=== PATIENT | male | born 1970 | race Caucasian/White ===

== ENCOUNTER 2020-12-27 09:59 | Emergency (ER) | payer MEDICAID, SELFPAY ==
[~2020-12-27] VITALS: Ht 170.2 cm; Wt 138.0 kg
[2020-12-27] MEDS ORDERED: LABETALOL 100MG/20ML VIAL IV STA (10:40)
[2020-12-27] MEDS ORDERED: METOPROLOL TART 25 MG TABLET PO ONE (10:50)
[2020-12-27] MEDS ORDERED: FUROSEMIDE 40MG/4ML VIAL (J1940) IV ONE (10:55)
[2020-12-27 11:18] LABS: BASO # 0.1 10^3/uL (0.0-0.2); BASO % 0.7 % (0.0-1.0); EOS % 0.4 % (0.0-3.0); HEMOGLOBIN 15.3 g/dl (13.5-17.5); LYMPH % 14.9 % (24.0-44.0); MEAN CORPUSCULAR HEMOGLOBIN 29.9 pg (27.0-33.0); MEAN CORPUSCULAR HGB CONC 32.6 g/dl (32.0-36.5); MEAN CORPUSCULAR VOLUME 91.8 fl (80.0-96.0); MONO # 0.6 10^3/uL (0.0-0.8); MONO % 9.1 % (2.0-8.0); NEUTROPHILS % 74.6 % (36.0-66.0); PLATELET COUNT, AUTOMATED 188 10^3/uL (150-450); RED BLOOD COUNT 5.12 10^6/uL (4.30-6.10); WHITE BLOOD COUNT 6.7 10^3/uL (4.0-10.0)
[2020-12-27 11:38] LABS: ALBUMIN 3.4 GM/DL (3.2-5.2); ALT/SGPT 51 U/L (12-78); BILIRUBIN,DIRECT 0.3 MG/DL (0.0-0.2); BLOOD UREA NITROGEN 15 MG/DL (7-18); CALCIUM LEVEL 8.6 MG/DL (8.5-10.1); CARBON DIOXIDE LEVEL 27 MEQ/L (21-32); CHLORIDE LEVEL 111 MEQ/L (98-107); CK-MB VALUE MASS 3.2 NG/ML (<3.6); CPK CREATINE PHOSPHOKINASE 76 U/L (39-308); CREATININE FOR GFR 1.25 MG/DL (0.70-1.30); GLOMERULAR FILTRATION RATE > 60.0 (>56); GLUCOSE, FASTING 122 MG/DL (70-100); MB/CK RELATIVE INDEX 4.21 (< OR =4); POTASSIUM SERUM 4.5 MEQ/L (3.5-5.1); SODIUM LEVEL 142 MEQ/L (136-145); TOTAL PROTEIN 6.2 GM/DL (6.4-8.2); TROPONIN I 0.09 NG/ML (< 0.10)
--- NOTE | 2020-12-27 11:44 | REP ---
INDICATION: DYSPNEA/COUGH. COMPARISON: No comparison chest x-ray. TECHNIQUE: Portable upright AP chest radiograph. FINDINGS: The heart is enlarged. Pulmonary vasculature is cephalized. There is diffuse interstitial edema pattern in the lung sierra consistent with CHF. Slight blunting of the right lateral pleural angle is seen.. Monitoring electrodes are noted. There are degenerative changes in the right shoulder. IMPRESSION: CHF pattern with interstitial edema and slight blunting of the right lateral pleural angle.. <Electronically signed by Jose Guadalupe Jhaveri > 12/27/20 [id number]
[2020-12-27 11:46] LABS: RSV AMPLIFICATION NEGATIVE (NEGATIVE)
[2020-12-27 11:59] VITALS: BP 195/137
[2020-12-27] MEDS ORDERED: METOPROLOL TART 50 MG TAB PO ONE (12:30)
[2020-12-27] MEDS ORDERED: METOPROLOL 5 MG/5 ML VIAL IV SCH (12:30)
[2020-12-27] MEDS ORDERED: LOPR1TAB6 PO (12:42)
[2020-12-27] MEDS ORDERED: ELIQ5TAB PO (12:42)
[2020-12-27] MEDS ORDERED: LASI40TA9 PO (12:42)
[2020-12-27 13:15] VITALS: BP 161/135
--- NOTE | 2020-12-27 17:18 | ECGEPIP ---
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
[2020-12-28] MEDS ORDERED: METO50TA7 PO (23:37)
[2020-12-28] MEDS ORDERED: FURO40TA2 PO (23:37)
== END 2020-12-27 13:44 | disposition home or self-care (01) ==
LOC: M ED 09:59
DX: I16.0 Hypertensive urgency (principal); I50.9 Heart failure, unspecified; I48.0 Paroxysmal atrial fibrillation; R06.02 Shortness of breath; Z53.9 Procedure and treatment not carried out, unspecified reason; F17.200 Nicotine dependence, unspecified, uncomplicated; F10.10 Alcohol abuse, uncomplicated; Z79.01 Long term (current) use of anticoagulants; Z79.899 Other long term (current) drug therapy
CPT/HCPCS: 71045; 80048; 80076; 82550; 82553; 83605; 83880; 85025; 87631; 93005; 93041; 94760; 96374; 99285; J1940

== ENCOUNTER 2020-12-28 21:48 | Inpatient (IN) | payer MEDICAID, SELFPAY ==
[~2020-12-28] VITALS: Ht 172.7 cm; Wt 131.2 kg
[~2020-12-28 21:48] MED LIST: ELIQ5TAB PO; LASI40TA9 PO; LOPR1TAB6 PO
[2020-12-28] MEDS ORDERED: FUROSEMIDE 40MG/4ML VIAL (J1940) IV ONE (22:30)
[2020-12-28] MEDS ORDERED: NITROGLYCERIN 2% OINT 1 GM *U/D* PKT TOP ONE (22:30)
--- NOTE | 2020-12-28 23:13 | REPVR ---
PROCEDURE INFORMATION: Exam: XR Chest Exam date and time: 12/28/2020 10:39 PM Age: 50 years old Clinical indication: Cough and dyspnea; Additional info: Dyspnea/cough TECHNIQUE: Imaging protocol: XR of the chest. Views: 1 view. COMPARISON: CR PORTABLE CHEST X-RAY 12/27/2020 11:21 AM FINDINGS: Lungs: The lungs are unchanged. There are no interval infiltrates. Pleural spaces: Unremarkable. No pleural effusion. No pneumothorax. Heart/Mediastinum: Mild cardiomegaly despite the AP and lordotic projection but is unchanged from the prior study. Bones/joints: Unremarkable. IMPRESSION: Stable lordotic chest since 12/27/2020 with cardiomegaly. No acute interval process is identified. Electronically signed by: Jose Miguel Brito On 12/28/2020 23:12:49 PM
[2020-12-28 23:14] LABS: BASO # 0.1 10^3/uL (0.0-0.2); BASO % 0.8 % (0.0-1.0); EOS # 0.1 10^3/uL (0.0-0.5); EOS % 1.3 % (0.0-3.0); HEMATOCRIT 45.5 % (42.0-52.0); HEMOGLOBIN 15.2 g/dl (13.5-17.5); LYMPH # 1.7 10^3/uL (1.5-5.0); LYMPH % 18.3 % (24.0-44.0); MEAN CORPUSCULAR HEMOGLOBIN 30.3 pg (27.0-33.0); MEAN CORPUSCULAR HGB CONC 33.4 g/dl (32.0-36.5); MEAN CORPUSCULAR VOLUME 90.8 fl (80.0-96.0); MONO # 0.9 10^3/uL (0.0-0.8); MONO % 9.6 % (2.0-8.0); NEUTROPHILS # 6.4 10^3/uL (1.5-8.5); NEUTROPHILS % 69.6 % (36.0-66.0); PLATELET COUNT, AUTOMATED 200 10^3/uL (150-450); RED BLOOD COUNT 5.01 10^6/uL (4.30-6.10); WHITE BLOOD COUNT 9.3 10^3/uL (4.0-10.0)
[2020-12-28] MEDS ORDERED: METO50TA7 PO (23:37)
[2020-12-28] MEDS ORDERED: FURO40TA2 PO (23:37)
[2020-12-28] MEDS ORDERED: HOME MED LIST COMPLETE! XX SCH (23:40)
[2020-12-28 23:48] LABS: ALBUMIN 3.2 GM/DL (3.2-5.2); BILIRUBIN,DIRECT 0.3 MG/DL (0.0-0.2); BILIRUBIN,TOTAL 0.9 MG/DL (0.2-1.0); CALCIUM LEVEL 8.3 MG/DL (8.5-10.1); CK-MB VALUE MASS 2.7 NG/ML (<3.6); CREATININE FOR GFR 1.43 MG/DL (0.70-1.30); GLOMERULAR FILTRATION RATE 55.5 (>56); MB/CK RELATIVE INDEX 4.03 (< OR =4); POTASSIUM SERUM 4.1 MEQ/L (3.5-5.1); TOTAL PROTEIN 5.9 GM/DL (6.4-8.2); TROPONIN I 0.89 NG/ML (< 0.10)
[2020-12-29 00:10] LABS: RSV AMPLIFICATION NEGATIVE (NEGATIVE)
[2020-12-29] MEDS ORDERED: NITROGLYCERIN/D5W 100MCG/ML 25 MG in IV 1 EA IV SCH (00:50)
[2020-12-29 02:15] LABS: CK-MB VALUE MASS 2.3 NG/ML (<3.6); MB/CK RELATIVE INDEX 3.15 (< OR =4); TROPONIN I 0.86 NG/ML (< 0.10)
[2020-12-29] MEDS ORDERED: ACETAMINOPHEN TAB 650MG DOSE (2X325MG) PO PRN (04:35)
[2020-12-29] MEDS ORDERED: MOM 30ML SUSPENSION UDC PO PRN (04:35)
[2020-12-29] MEDS ORDERED: MAALOX 30 ML SUSP *UDC PO PRN (04:35)
--- NOTE | 2020-12-29 04:44 | HPEPDOC ---
[facility] Medical History & Physical Date of Admission Dec 29, 2020 Date of Service: Dec 29, 2020 Attending Physician: JUANJO ECHEVERRIA MD History and Physical CHIEF COMPLAINT: [50 y/o male c/o increasing sob x3 weeks] HISTORY OF PRESENT ILLNESS: [This is a 50 y/o male with no pmh who has not followed with a pcp in approx 30 years who presents to our ED on 12/28 with a cc of sob that has been increasing over the past 3 weeks. Patient reported to our ED on 12/27 for similar symptoms and at that point found to be in a-fib with rvr and subsequently started on metoprolol and eliquis in the ED, however declined admission d/t a family responsibility. Patient states that symptoms have not really improved but he did start his medications. Patient states that his sob is worse with movement however he does feel sob at times while simply sitting still. Patient admits to cough productive of white sputum. Patient states that he is worried to fall asleep at times because he feels it would cause him to almost stop breathing. Patient states that he feels he is holding on to a lot of fluid as he endorses abdominal distention and b/l lower extremity grossly pitting edema. Patient, at the time of my exam, denies fevers, headaches, chest pain, chest tightness, abd pain, n/v/d/c, calf pain, palpitations, syncope.] PAST MEDICAL HISTORY: 1. [See HPI PAST SURGICAL HISTORY: 1. [None]. SOCIAL HISTORY: Tobacco use:[Current smoker, recently cut down to 2-3 cigarettes/day] ETOH: [Socially] Illicit drug use: [Denies] FAMILY HISTORY: Father - CHF, COPD ALLERGIES: Please see below. REVIEW OF SYSTEMS: CONSTITUTIONAL: [See HPI]. HEENT: [Denies uri sx]. CARDIOVASCULAR: [See HPI]. RESPIRATORY: [See HPI]. GASTROINTESTINAL: [See HPI]. GENITOURINARY: [Denies dysuria]. SKIN: [Denies rash]. MUSCULOSKELETAL: [Denies acute joint/back pain]. NEUROLOGICAL: [Denies syncope, paresthesias]. ENDOCRINE: [Denies hx of DM]. HEMATOLOGIC/LYMPHATIC: [Denies easy bruising]. HOME MEDICATIONS: Please see below. PHYSICAL EXAMINATION: VITAL SIGNS: Please see below. GENERAL APPEARANCE: [This is a pleasant 50 y/o male who is alert and oriented to all questioning. He does not appear to be in any acute respiratory distress.]. HEENT: [No mass or lesion. EOMI. No scleral icterus. Nares patent. oral mucosa moist]. CARDIOVASCULAR: [Tachy rate, irregularly irregular rhythm. No murmurs, rubs, gallops]. LUNGS: [Scattered rhonchi and crackles throughout.]. ABDOMEN: [Distended, firm, nontender]. MUSCULOSKELETAL: [No joint deformity]. EXTREMITIES: [Pitting edema appreciated to b/l lower extremities above the knee. No overlying skin changes. Pulses intact]. NEUROLOGICAL: [Speech clear. A+Ox3. No focal deficits.]. PSYCHIATRIC: [Mood and affect appropriate.]. LABORATORY DATA: See below. IMAGING: [CXR: FINDINGS: Lungs: The lungs are unchanged. There are no interval infiltrates. Pleural spaces: Unremarkable. No pleural effusion. No pneumothorax. Heart/Mediastinum: Mild cardiomegaly despite the AP and lordotic projection but is unchanged from the prior study. Bones/joints: Unremarkable. IMPRESSION: Stable lordotic chest since 12/27/2020 with cardiomegaly. No acute interval process is identified. ] MICROBIOLOGY: Please see below. ASSESSMENT: [This is a 50 y/o male with no pmh who has not followed with a pcp in approx 30 years who presents to our ED on 12/28 with a cc of sob that has been increasing over the past 3 weeks. Patient reported to our ED on 12/27 for similar symptoms and at that point found to be in a-fib with rvr and subsequently started on metoprolol and eliquis in the ED, however declined admission d/t a family responsibility.]. . PLAN: 1. [Fluid overload - almost certainly secondary to CHF, patient paints chf picture clinically, has elevated bnp - echo ordered - Dr. Lassiter, cardiology, consulted by ED provider who recommended diuresis - 40mg lasix given in the ED - 60mg one time lasix ordered followed by 40mg q6h - Daily weights, is and os - lower extremity us to r/o dvt - Admit to pcu with tele for tx 2. HTN urgency - patients blood pressures elevated to 190s systolic at its highest in the ed - somewhat improved by nitro drip in the ED - will add lisinopril 20mg to patients bp regimen, will likely need uptitration - will monitor closely 3. A-fib - Patient not currently in rvr with rates consistantly in the the 90s-100s - continue metoprolol, eliquis - echo ordered to r/o valvular disease 4. ARCENIO? - patient's cr currently 1.4, however we have no baseline - If true arcenio, likely congestive in nature, pre-renal - renal us, ua, urine electrolytes 5. Troponinemia - Likely d/t CHF, tachycardia - patient complains of no chest pain, ekg not indicative of ischemia - Will trend 6 Class 3 obesity -complicates care DVT prophylaxis - patient on eliquis]. Vital Signs Vital Signs Date Time Temp Pulse Resp B/P (MAP) Pulse Ox O2 Delivery O2 Flow Rate FiO2 12/29/20 02:45 103 20 161/106 (124) 94 Room Air 12/28/20 21:48 98.2 Laboratory Data Labs 24H Laboratory Tests 2 12/28/20 23:00: Immature Granulocyte % (Auto) 0.4, Neutrophils (%) (Auto) 69.6H, Lymphocytes (%) (Auto) 18.3L, Monocytes (%) (Auto) 9.6H, Eosinophils (%) (Auto) 1.3, Basophils (%) (Auto) 0.8, Neutrophils # (Auto) 6.4, Lymphocytes # (Auto) 1.7, Monocytes # (Auto) 0.9H, Eosinophils # (Auto) 0.1, Basophils # (Auto) 0.1, Nucleated Red Blood Cells % (auto) 0.0, Anion Gap 7L, Glomerular Filtration Rate 55.5L, Calcium Level 8.3L, Total Bilirubin 0.9, Direct Bilirubin 0.3H, Aspartate Amino Transf (AST/SGOT) 40H, Alanine Aminotransferase (ALT/SGPT) 58, Alkaline Phospha tase 142H, Total Creatine Kinase 67, Creatine Kinase MB 2.7, Creatine Kinase MB Relative Index 4.03H, Troponin I 0.89#H, WR-Atg-D-Type Natriuretic Peptide 3908H, Total Protein 5.9L, Albumin 3.2, Albumin/Globulin Ratio 1.2, Coronavirus (COVID-19)(PCR) NEGATIVE, Influenza Type A (RT-PCR) NEGATIVE, Influenza Type B (RT-PCR) NEGATIVE, Respiratory Syncytial Virus (PCR) NEGATIVE 12/29/20 01:39: Total Creatine Kinase 73, Creatine Kinase MB 2.3, Creatine Kinase MB Relative Index 3.15, Troponin I 0.86H CBC/BMP Laboratory Tests 12/28/20 23:00 Home Medications Scheduled Apixaban (Eliquis) 5 Mg Tablet, 5 MG PO BID Carvedilol (Carvedilol) 12.5 Mg Tablet, 25 MG PO BID Cefdinir (Cefdinir) 300 Mg Capsule, 1 CAP PO BID Sacubitril/Valsartan (Entresto 24 mg-26 mg Tablet) 1 Each Tablet, 1 TAB PO BID Spironolactone (Aldactone) 25 Mg Tablet, 25 MG PO DAILY Torsemide (Torsemide) 20 Mg Tablet, 40 MG PO DAILY Scheduled PRN Hydrocodone/Acetaminophen (Hydrocodone-Acetamin 5-325 mg) 1 Each Tablet, 1 TAB PO Q6H PRN for PAIN Allergies Coded Allergies: No Known Allergies (Unverified , 12/27/20) A-FIB/CHADSVASC A-FIB History Current/History of A-Fib/PAF?: Yes Current PO Anticoag Therapy: Yes VIRI SMILEY Dec 29, 2020 04:44 JUANJO ECHEVERRIA MD Jan 04, 2021 06:35
[2020-12-29] MEDS ORDERED: FUROSEMIDE 100MG/10ML VIAL (J1940) IV ONE ×2 (05:00→10:20)
--- NOTE | 2020-12-29 06:06 | REPVR ---
PROCEDURE INFORMATION: Exam: US Duplex Lower Extremity Veins, Bilateral Exam date and time: 12/29/2020 5:49 AM Age: 50 years old Clinical indication: Edema, localized; Lower extremity, bilateral; Additional info: Ryan TECHNIQUE: Imaging protocol: Real-time duplex ultrasound of the extremities with 2-D sandoval scale, color Doppler flow and spectral waveform analysis with image documentation. Complete exam focused on the bilateral lower extremity veins. COMPARISON: No relevant prior studies available. FINDINGS: Right deep veins: Unremarkable. The common femoral, femoral, proximal profunda femoral and popliteal veins are patent without thrombus. Normal Doppler waveforms. Normal compressibility and/or augmentation response. Right superficial veins: Saphenofemoral junction is patent without thrombus. Left deep veins: Unremarkable. The common femoral, femoral, proximal profunda femoral and popliteal veins are patent without thrombus. Normal Doppler waveforms. Normal compressibility and/or augmentation response. Left superficial veins: Saphenofemoral junction is patent without thrombus. Soft tissues: Subcutaneous edema of the calves bilaterally. Left popliteal fossa cyst measuring 5.4 x 1.8 x 3.7 cm. IMPRESSION: 1. Negative bilateral lower extremity venous duplex exam without evidence of deep venous thrombosis. 2. Subcutaneous edema of the calves bilaterally. 3. Left popliteal fossa cyst measuring 5.4 x 1.8 x 3.7 cm. Electronically signed by: Jose Miguel Brito On 12/29/2020 06:05:31 AM
--- NOTE | 2020-12-29 06:08 | REPVR ---
PROCEDURE INFORMATION: Exam: US Retroperitoneal Limited, Kidneys Exam date and time: 12/29/2020 5:49 AM Age: 50 years old Clinical indication: Abnormal findings; Abnormal lab test; Abnormal kidney function lab tests; Additional info: Ryan TECHNIQUE: Imaging protocol: Real-time ultrasound of the retroperitoneum with image documentation. Examination was focused on the kidneys. COMPARISON: No relevant prior studies available. FINDINGS: Right kidney: The right kidney measures 12.2 cm in its cephalocaudad dimension and 6.3 x 5.4 cm in diameter. No mass, cyst or hydronephrosis. Left kidney: The left kidney measures 11.6 cm in its cephalocaudad dimension and 6.1 x 6.1 cm in diameter. No mass, cyst or hydronephrosis. Bladder: The urinary bladder appears grossly normal. IMPRESSION: Negative renal sonogram. Electronically signed by: Jose Miguel Brito On 12/29/2020 06:07:23 AM
[2020-12-29 07:28] LABS: INR 1.17; PROTHROMBIN TIME 15.3 SECONDS (12.7-14.5)
[2020-12-29] MEDS ORDERED: atenoloL 50 MG TAB PO ONE (08:35)
--- NOTE | 2020-12-29 08:58 | REP ---
INDICATION: SOB COMPARISON: None. TECHNIQUE: PA and lateral. FINDINGS: Cardiomegaly is appreciated with prominent and indistinct pulmonary vasculature emanating from the bilateral robert. No discrete focal consolidation. Small right pleural effusion cannot be excluded. No pneumothorax. Skeletal structures intact. IMPRESSION: Early pulmonary edema/CHF. <Electronically signed by Cristo Soriano > 12/29/20 [id number]
[2020-12-29] MEDS ORDERED: METOPROLOL TART 50 MG TAB PO SCH (09:00)
[2020-12-29] MEDS: APIXABAN 5 MG TAB (ELIQUIS) PO SCH ×2 (09:48→21:04)
[2020-12-29 09:56] LABS: CALCIUM LEVEL 8.9 MG/DL (8.5-10.1); CK-MB VALUE MASS 2.9 NG/ML (<3.6); CREATININE FOR GFR 1.49 MG/DL (0.70-1.30); GLOMERULAR FILTRATION RATE 52.9 (>56); MAGNESIUM LEVEL 1.8 MG/DL (1.8-2.4); MB/CK RELATIVE INDEX 3.82 (< OR =4); POTASSIUM SERUM 3.7 MEQ/L (3.5-5.1); TROPONIN I 0.68 NG/ML (< 0.10)
--- NOTE | 2020-12-29 10:07 | ECGEPIP ---
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
[2020-12-29] MEDS ORDERED: SLF 3 ML SYR IV PRN (10:30)
[2020-12-29 11:27] LABS: CK-MB VALUE MASS 2.5 NG/ML (<3.6); MB/CK RELATIVE INDEX 3.33 (< OR =4); TROPONIN I 0.64 NG/ML (< 0.10)
[2020-12-29] MEDS ORDERED: FUROSEMIDE 40MG/4ML VIAL (J1940) IV SCH (12:00)
[2020-12-29 12:15] VITALS: BP 170/99
[2020-12-29 12:20] VITALS: O2SAT 95
[2020-12-29] MEDS ORDERED: CALCIUM GLUCONATE 1,000 MG in D5W MINI-BAG PLUS 100 ML IV ONE (13:00)
[2020-12-29] MEDS ORDERED: POTASSIUM CHLORIDE 10 MEQ SR TABLET PO ONE (13:00)
[2020-12-29] MEDS ORDERED: MAG SULF 1GM/100ML (MAG RUN) 1 GM in IV 1 EA IV ONE (13:00)
[2020-12-29 14:19] LABS: APPEARANCE, URINE CLEAR (CLEAR); BACTERIA, URINE AUTO NEGATIVE (NEGATIVE); BILIRUBIN, URINE AUTO NEGATIVE (NEGATIVE); BLOOD, URINE BLOOD NEGATIVE (NEGATIVE); COLOR, URINE YELLOW (YELLOW); GLUCOSE, URINE (UA) AUTO NEGATIVE (NEGATIVE); KETONE, URINE AUTO NEGATIVE (NEGATIVE); LEUKOCYTE ESTERASE, URINE AUTO NEGATIVE (NEGATIVE); MUCUS, URINE SMALL (NEGATIVE); NITRITE, URINE AUTO NEGATIVE (NEGATIVE); PROTEIN, URINE AUTO NEGATIVE (NEGATIVE); RBC, URINE AUTO 0 /HPF (0-3); SPECIFIC GRAVITY URINE AUTO 1.008 (1.002-1.035); SQUAMOUS EPITHELIAL CELL UR AU 0 /HPF (0-6); UROBILINOGEN, URINE AUTO 0.2 mg/dL (0.0-2.0); WBC, URINE AUTO 1 /HPF (0-3)
[2020-12-29 14:30] VITALS: BP 145/90
[2020-12-29 14:45] LABS: CREATININE,RANDOM URINE 61.4 MG/DL
[2020-12-29 15:01] LABS: TOTAL PROTEIN,RANDOM URINE 11.9 MG/DL (0.0-12.0)
[2020-12-29] MEDS: SLF 3 ML SYR IV SCH ×2 (15:56→21:05)
[2020-12-29 16:00] VITALS: BP 146/96
[2020-12-29 16:16] LABS: CALCIUM LEVEL 8.7 MG/DL (8.5-10.1); CK-MB VALUE MASS 1.9 NG/ML (<3.6); CREATININE FOR GFR 1.8 MG/DL (0.70-1.30); GLOMERULAR FILTRATION RATE 42.6 (>56); MAGNESIUM LEVEL 2.3 MG/DL (1.8-2.4); MB/CK RELATIVE INDEX 2.68 (< OR =4); TROPONIN I 0.58 NG/ML (< 0.10)
[2020-12-29] MEDS: ISOSORBIDE DIN. (ISORDIL) 20 MG TAB PO PRN (18:32)
[2020-12-29 20:00] VITALS: BP 156/85; O2SAT 95
--- NOTE | 2020-12-29 20:27 | ECGEPIP ---
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
[2020-12-29] MEDS: atenoloL 50 MG TAB PO SCH (21:05)
[2020-12-30] VITALS (15 sets, daily range): BP systolic 146–158; BP diastolic 80–96; O2SAT 84–96
[2020-12-30] MEDS: SLF 3 ML SYR IV SCH ×3 (05:08→20:42)
[2020-12-30 05:20] LABS: HEMATOCRIT 45.3 % (42.0-52.0); HEMOGLOBIN 14.5 g/dl (13.5-17.5); MEAN CORPUSCULAR HEMOGLOBIN 29.5 pg (27.0-33.0); MEAN CORPUSCULAR VOLUME 92.3 fl (80.0-96.0); PLATELET COUNT, AUTOMATED 172 10^3/uL (150-450); RED BLOOD COUNT 4.91 10^6/uL (4.30-6.10); WHITE BLOOD COUNT 7.4 10^3/uL (4.0-10.0)
[2020-12-30 05:48] LABS: CALCIUM LEVEL 8.3 MG/DL (8.5-10.1); CHOLESTEROL RISK RATIO 2.729 (<5); CREATININE FOR GFR 1.61 MG/DL (0.70-1.30); GLOMERULAR FILTRATION RATE 48.4 (>56); MAGNESIUM LEVEL 2.2 MG/DL (1.8-2.4); POTASSIUM SERUM 3.7 MEQ/L (3.5-5.1)
--- NOTE | 2020-12-30 08:25 | IPNPDOC ---
Date Seen The patient was seen on 12/30/20. Progress Note SUBJECTIVE: denies chest pain,palpitations, but slightly dizzy when he first got up this am. slight sob,but significantly better than yesterday morning. tele:afib i/o: neg balance OBJECTIVE PHYSICAL EXAMINATION: VITAL SIGNS: Please see below. GENERAL: no distress HEENT: mild jvd. moist mucus membranes no cervical LAD or thyromegaly CARDIOVASCULAR:S1S2 S3 irregularly irregular RESPIRATORY: diminished AE. bibasilar crackles. ABDOMINAL: obese soft nt nd +bs x 4quadrants no fluid wave EXTREMITIES: + trace bl edema LABORATORY DATA, IMAGING STUDIES, MICROBIOLOGY: Please see below. Echocardiogram: pending, ordered DVT prophylaxis ordered?: on eliquis ASSESSMENT AND PLAN: 50M w pmh obesity, prior h/o smoking admitted for new onset Afib w rvr, complicated by HTN emergency, CHF, unk EF, ARCENIO, and type2 demand-mediated NSTEMI. PROBLEMS: New onset Afib w RVR -on eliquis -on atenolol -rate controlled HTN emergency w CHF and type 2 NSTEMI s/p nicardipine iv gtt -resolved -s/p lasix -avoid ACEInh and ARB due to ARCENIO -on hydralazine and nitrates -atenolol for afib acute CHF, unknown EF -in the setting of htn emergency and afib w rvr -s/p lasix -complicated by ARCENIO -off diuretics x 24hrs, w improved creatinine -fluid restriction 2liters, strict i/l, weigh daily ARCENIO -in the setting of decompensated chf and recent diuresis -still appears clinically fluid overloaded -statement processor consulted to help manage fluid status type 2 demand-mediated NSTEMI -due to afib w rvr -will need a stress test or coronary angiogram -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 VS, I&O, 24H, Fishbone Vital Signs/I&O Vital Signs Date Time Temp Pulse Resp B/P (MAP) Pulse Ox O2 Delivery O2 Flow Rate FiO2 12/30/20 04:00 96.8 66 24 148/95 (112) 92 Room Air I&O- Last 24 Hours up to 6 AM 12/30/20 06:00 Intake Total 665 ml Output Total 2375 ml Balance -1710 ml Laboratory Data 24H LABS Laboratory Tests 2 12/29/20 09:04: Anion Gap 6L, Glomerular Filtration Rate 52.9L, Calcium Level 8.9, Whole Blood Ionized Calcium 4.4L, Magnesium Level 1.8, Total Creatine Kinase 76, Creatine Kinase MB 2.9, Creatine Kinase MB Relative Index 3.82, Troponin I 0.68#H, MW-Brz-E-Type Natriuretic Peptide 3742H 12/29/20 10:46: Total Creatine Kinase 75, Creatine Kinase MB 2.5, Creatine Kinase MB Relative Index 3.33, Troponin I 0.64H 12/29/20 13:53: Urine Color YELLOW, Urine Appearance CLEAR, Urine pH 6.0, Urine Specific [place] 1.008, Urine Protein NEGATIVE, Urine Glucose (Auto)(UA) NEGATIVE, Urine Ketones (Auto) NEGATIVE, Urine Blood NEGATIVE, Urine Nitrite NEGATIVE, Urine Bilirubin NEGATIVE, Urine Urobilinogen 0.2, Urine Leukocyte Esterase (Auto) NEGATIVE, Urine WBC (Auto) 1, Urine RBC (Auto) 0, Urine Hyaline Casts (Auto) 1, Urine Bacteria (Auto) NEGATIVE, Urine Squamous Epithelial Cells 0, Urine Mucus (Auto) SMALL, Urine Sperm (Auto) , Urine Random Creatinine 61.4, Urine Random Total Protein 11.9, Urine Random Sodium 89 12/29/20 15:38: Anion Gap 4L, Glomerular Filtration Rate 42.6L, Calcium Level 8.7, Whole Blood Ionized Calcium 4.5, Magnesium Level 2.3, Total Creatine Kinase 71, Creatine Kinase MB 1.9, Creatine Kinase MB Relative Index 2.68, Troponin I 0.58H 12/30/20 04:54: Nucleated Red Blood Cells % (auto) 0.0, Anion Gap 4L, Glomerular Filtration Rate 48.4L, Calcium Level 8.3L, Magnesium Level 2.2, JE-Kkg-V-Type Natriuretic Peptide 2662H, Triglycerides Level 68, Total Cholesterol 101, LDL Cholesterol 50, Non-HDL Cholesterol (LDL + VLDL) 64, Total HDL Cholesterol 37L, Cholesterol/HDL Ratio 2.729 CBC/BMP Laboratory Tests 12/29/20 09:04 12/29/20 15:38 12/30/20 04:54 DEENA LO MD Dec 30, 2020 08:25
--- NOTE | 2020-12-30 08:27 | REP ---
INDICATION: sob COMPARISON: 12/29/2020 TECHNIQUE: Portable AP view of the chest FINDINGS: The mediastinum and cardiac silhouette are stable and mild cardiomegaly cannot be excluded. The lung sierra are relatively clear and without focal consolidation, effusion, or pneumothorax. Increased pulmonary vasculature emanating from the robert on prior examination appears improved and should be correlated clinically. Skeletal structures are intact. IMPRESSION: No acute cardiopulmonary process appreciated. As above. <Electronically signed by Cristo Soriano > 12/30/20 [id number]
[2020-12-30 08:54] LABS: THYROID STIMULATING HORMONE 2.45 uIU/ML (0.358-3.740)
[2020-12-30] MEDS ORDERED: atenoloL 50 MG TAB PO SCH (09:00)
[2020-12-30 09:11] LABS: HEMOGLOBIN A1c 5.3 %
[2020-12-30] MEDS: APIXABAN 5 MG TAB (ELIQUIS) PO SCH ×2 (09:11→20:42)
[2020-12-30] MEDS: FUROSEMIDE 100MG/10ML VIAL (J1940) IV SCH ×2 (13:02→16:31)
[2020-12-30] MEDS: atenoloL 50 MG TAB PO SCH (20:42)
--- NOTE | 2020-12-30 21:23 | CR ---
NEPHROLOGY CONSULTATION DATE: 12/30/2020 REQUESTING PHYSICIAN: Dr. Cher Ozuna CONSULTING PHYSICIAN: Dr. Ashanti Garg REASON FOR CONSULTATION: Management of diuretic in this patient with renal dysfunction. HISTORY OF PRESENT ILLNESS: Armando Arvizu is a 50-year-old male who presented to the hospital with a complaint of progressive and worsening shortness of breath. He reports he has not seen a physician his whole adult life and cannot recall having blood work done for several decades. He states that over the past year or two he has noticed development of swelling in his legs which has slowly and insidiously worsened, but the patient did not pay much attention to it until the last 3 weeks when he found it increasingly difficult to breathe. Even at rest the patient was short of breath. It got to the point where he felt that he could not sleep at all at night because of severe dyspnea and orthopnea. He started trying to sleep while he was sitting upright and even then he felt short of breath and subsequently he came to the Emergency Room for further evaluation. In the Emergency Department on December 27 the patient was found to be in atrial fibrillation with rapid ventricular response and he was started on Metoprolol and Eliquis and was advised to get admitted. However he declined admission due to some work that he had to get done. He subsequently presented back to the Emergency Room on the evening of December 28, ready for further evaluation and treatment of his fluid overload. He tells me that he takes no [id number]-qzvticj medication on a regular basis with the exception of Ibuprofen. He has been taking a couple tablets every day for about a year now. He denies any issues emptying out his bladder. He denies any issues with his urine stream. He has thus far gotten a total of 100 mg of IV Lasix since he was admitted and has made several liters of urine and reports already feeling more comfortable and less short of breath. Laboratory studies revealed a creatinine of 1.4 on admission on December 28 which is up to 1.8 yesterday and nephrology evaluation was subsequently requested for help in the management of diuresis in this patient with suspected chronic underlying renal dysfunction. PAST MEDICAL HISTORY: The patient's past medical history is significant for: 1. Obesity. 2. Atrial fibrillation. 3. Most likely chronic kidney disease stage 3. 4. Hypertension. 5. Suspected congestive heart (I do note all of these diagnoses have been made over the past 3 days as the patient has not had prior medical care his whole adult life). PAST SURGICAL HISTORY: The patient's past surgical history is significant for: 1. He reports surgery on his third knuckle of the left hand at age 18. ALLERGIES: NO KNOWN DRUG ALLEGIES. SOCIAL HISTORY: He is a current smoker. He reports social alcohol. He denies drug use. HOME MEDICATIONS: Ibuprofen p.r.n. FAMILY HISTORY: The patient's family history is significant for congestive heart failure in his father. REVIEW OF SYSTEMS: Constitutional: He denies fevers or chills. Eyes: He denies visual changes or tearing. ENT: He denies rhinorrhea or odynophagia. Cardiovascular: He reports leg swelling. He reports dyspnea at rest. Reports atrial fibrillation. He denies chest pain. Respiratory: He reports orthopnea, dyspnea and paroxysmal nocturnal dyspnea. Gastrointestinal: He denies nausea, vomiting, diarrhea. Genitourinary: He denies dysuria, hematuria or troubles voiding. Endocrine: He reports obesity. He denies diabetes or thyroid issues. Musculoskeletal: He reports arthritic pain and leg swelling. Hematologic: Denies anemia. He reports he was recently started on anticoagulant 2 days ago. Psychiatric: He denies depression or anxiety. Neurologic: He denies seizures or syncope. The remainder of review of systems is negative or as per HPI. VITAL SIGNS: Temperature 98.0, pulse 86, respiratory rate 21, blood pressure 152/94, saturating 98% on room air. INTAKE AND OUTPUT: Intake yesterday was 665 mL. Urine output was recorded as 2.3 liters. Weight in the bed scale today is 138.4 kg. PHYSICAL EXAMINATION: GENERAL APPEARANCE: The patient is seen sitting on a sofa by the bed, eating lunch. Middle age male, obese, awake, alert, oriented, good historian, in no distress. HEENT: The extraocular muscles are intact. Tongue is moist. NECK: Supple. Jugular veins were mildly elevated. HEART: Irregularly irregular. There is 2+ pitting edema distal to the knee. LUNGS: Good breath sounds. I do not hear any crackles or rales. He is comfortable on room air. There is no tachypnea or accessory muscle use. ABDOMEN: Soft, obese and nontender. EXTREMITIES: Negative for clubbing or cyanosis but there is 2+ edema in the lower extremities. Peripheral pulses are 2+. NEUROLOGICAL: He is oriented x3, interactive, at baseline mentation. PSYCHIATRIC: Appropriate mood and affect. LABORATORY STUDIES: Sodium 142, potassium 3.7, bicarbonate 33, BUN 25, creatinine 1.6, up from 1.4 on admission. A1c 5.3, BNP 2,600, TSH is normal. Albumin is 3.2. Hemoglobin 14.5, platelet count 172. Urinalysis is negative for blood and negative for protein. IMAGING DATA: Renal ultrasound done yesterday shows 12.2 cm right kidney and 11.6 cm left kidney. No hydronephrosis, no mass, no cysts. CURRENT INPATIENT MEDICATIONS: The patient has thus far gotten cumulative 100 mg of IV Lasix since admission. He is presently on Tylenol p.r.n., Mylanta p.r.n., Eliquis 5 mg p.o. twice daily, Atenolol 50 mg p.o. q. h.s. and Atenolol 100 mg p.o. daily. I ordered Lasix 60 mg IV twice daily. He is also on Isordil 20 mg p.o. q. 6 hourly p.r.n. systolic blood pressure above 150. PROBLEMS: 1. Rbmgv-vc-[id number] decompensated congestive heart failure, type is unknown yet - the patient is pending echocardiogram. BNP was elevated at 3,900 on admission, down to 2,600 at this time. He has gotten a total of 100 mg of IV Lasix thus far and has started to diurese but still has considerable hypervolemia on exam. I would continue him on Lasix at this time. Furosemide 60 mg IV twice daily is ordered. 2. Probable chronic kidney disease stage 3 - The patient had a renal ultrasound and urinalysis done. Both were unremarkable. Renal ultrasound showed normal size kidneys without any cyst, mass or signs of obstruction. His urinalysis likewise is benign and negative for blood or protein. His creatinine has been ranging from 1.2 to 1.8 over the past 3 days. We will diurese the patient and see where his renal function ends up after his volume status is optimized. He reports taking Ibuprofen daily, a couple of tablets for the past year and I have advised him against regular use of NSAIDs. I would keep him off GALE or ARB at this time (unless echocardiogram shows reduced left ventricular ejection fraction). 3. Hypertension systolic has been mostly 140's to 150's. He is on Atenolol and Isordil and I expect that his blood pressure is going to improve as he is diuresed with IV Lasix. I would keep him off of GALE or ARB at this time. 4. Atrial fibrillation with rapid ventricular response - The patient is rate controlled with beta mary and anticoagulated with Eliquis. I suggest that he may benefit from a low dose proton pump inhibitor, given that he has been using NSAIDs every day for the past year and is now being started on full anticoagulation. Thank you for involving me in the care of Mr. Arvizu. I will be happy to follow him along with you.
[2020-12-31] VITALS: BP 156/107
[2020-12-31] MEDS: ISOSORBIDE DIN. (ISORDIL) 20 MG TAB PO PRN (00:21)
[2020-12-31 04:00] VITALS: BP 156/90
[2020-12-31 04:59] LABS: HEMATOCRIT 45.1 % (42.0-52.0); HEMOGLOBIN 14.8 g/dl (13.5-17.5); MEAN CORPUSCULAR HGB CONC 32.8 g/dl (32.0-36.5); MEAN CORPUSCULAR VOLUME 91.5 fl (80.0-96.0); PLATELET COUNT, AUTOMATED 185 10^3/uL (150-450); RED BLOOD COUNT 4.93 10^6/uL (4.30-6.10); WHITE BLOOD COUNT 7.2 10^3/uL (4.0-10.0)
[2020-12-31 05:20] LABS: CALCIUM LEVEL 8.3 MG/DL (8.5-10.1); CREATININE FOR GFR 1.51 MG/DL (0.70-1.30); GLOMERULAR FILTRATION RATE 52.1 (>56); MAGNESIUM LEVEL 2.1 MG/DL (1.8-2.4); POTASSIUM SERUM 3.7 MEQ/L (3.5-5.1)
[2020-12-31] MEDS: SLF 3 ML SYR IV SCH ×3 (06:10→21:57)
[2020-12-31 08:01] VITALS: BP 155/96
[2020-12-31] MEDS: APIXABAN 5 MG TAB (ELIQUIS) PO SCH ×2 (09:53→21:57)
[2020-12-31] MEDS: atenoloL 50 MG TAB PO SCH (09:53)
[2020-12-31] MEDS: FUROSEMIDE 100MG/10ML VIAL (J1940) IV SCH ×2 (09:54→16:26)
[2020-12-31] MEDS: OMEPRAZOLE 20 MG CAP PO SCH (09:54)
[2020-12-31] MEDS ORDERED: ELIQ5TAB PO (10:27)
[2020-12-31] MEDS ORDERED: ISOSORBIDE MON. (IMDUR) 60 MG XR TAB PO ONE (12:20)
--- NOTE | 2020-12-31 12:25 | IPNPDOC ---
Date Seen The patient was seen on 12/31/20. Progress Note SUBJECTIVE: Patient diuresed well overnight and is said that he actually urinated more than what is documented. He was not aware that nursing was keeping an eye on his urine output. He denies any shortness of breath and says that he feels much better today than yesterday especially with ambulation. He denies any chest pressure tightness lightheadedness or dizziness when he got up this morning he denies any nausea vomiting epigastric pain changes in vision or diaphoresis patient is anxious to go home and is requesting to see Dr. Lassiter as outpatient as a new referral in case he needed a stress test or coronary angiogram to further evaluate his congestive heart failure OBJECTIVE PHYSICAL EXAMINATION: VITAL SIGNS: Please see below. GENERAL: no distress HEENT: No JVD moist mucous membranes no thyromegaly or cervical lymphadenopathy CARDIOVASCULAR:S1S2 no murmurs noted irregularly irregular not tachycardic RESPIRATORY: diminished AE. bibasilar crackles. ABDOMINAL: obese soft nt nd +bs x 4quadrants no fluid wave EXTREMITIES: + trace bl edema LABORATORY DATA, IMAGING STUDIES, MICROBIOLOGY: Please see below. Echocardiogram: pending, ordered DVT prophylaxis ordered?: on eliquis ASSESSMENT AND PLAN: 50M w pmh obesity, prior h/o smoking admitted for new onset Afib w rvr, complicated by HTN emergency, CHF, unk EF, ARCENIO, and type2 demand-mediated NSTEMI. PROBLEMS: New onset Afib w RVR -on eliquis -on atenolol which has been changed to daily hold for systolic pressure less than 100 or heart rate less than 60, heart block, sinus pause -rate controlled HTN emergency w CHF and type 2 NSTEMI s/p nicardipine iv gtt -resolved -On Lasix IV twice daily managed by nephrology -avoid ACEInh and ARB due to ARCENIO -on hydralazine as needed -Changed to long-acting isosorbide mononitrate once daily 60 mg for long-acting control -atenolol for afib acute CHF, unknown EF -in the setting of htn emergency and afib w rvr -Lasix managed by nephrology -complicated by ARCENIO -fluid restriction 2liters, strict i/l, weigh daily ARCENIO -in the setting of decompensated chf and recent diuresis -still appears clinically fluid overloaded -etcher enameling consulted to help manage fluid status on IV Lasix twice daily type 2 demand-mediated NSTEMI -due to afib w rvr -will need a stress test or coronary angiogram as outpatient -pt wants talent consultant that his father goes to.Antecol obesity BMI 46.4 Complicating care suspected SUSHILA -will need a sleep study -await echo to check for pulm htn and right sided chf/cor pulmonale prior tobacco abuse Disposition: Defer to nephrology when patient is euvolemic and can be changed to oral diuretics. 1 to 2 days VS, I&O, 24H, Fishbone Vital Signs/I&O Vital Signs Date Time Temp Pulse Resp B/P (MAP) Pulse Ox O2 Delivery O2 Flow Rate FiO2 12/31/20 09:53 83 155/96 12/31/20 08:01 97.2 23 83 Room Air I&O- Last 24 Hours up to 6 AM 12/31/20 06:00 Intake Total 2160 ml Output Total 650 ml Balance 1510 ml Laboratory Data 24H LABS Laboratory Tests 2 12/31/20 04:38: Nucleated Red Blood Cells % (auto) 0.0, Anion Gap 3L, Glomerular Filtration Rate 52.1L, Calcium Level 8.3L, Magnesium Level 2.1 CBC/BMP Laboratory Tests 12/31/20 04:38 DEENA LO MD Dec 31, 2020 12:25
[2020-12-31 12:31] VITALS: BP 137/92
[2020-12-31 16:20] VITALS: BP 140/90
--- NOTE | 2020-12-31 17:16 | ECHO ---
ECHOCARDIOGRAM DATE OF PROCEDURE: 12/29/2020 Age: Gender: Height: 173 cm Weight: 110 kg REFERRING PHYSICIAN: Reggie Roman physician assistant fitness manager INDICATION: Heart failure, unspecified. 2D MEASUREMENTS: Ventricular septum 1.77 cm Posterior wall 1.62 cm Left ventricle diastole 6.4 cm Left atrium 5.1 cm Aortic root 3.4 cm LVOT 2.4 cm Left atrial volume index 15 Inferior vena cava 2.7 cm DOPPLER MEASUREMENTS: LVOT velocity 51.6 cm/s Mild mitral regurgitation. Mild tricuspid regurgitation. Estimated right ventricle systolic pressure at least 51 mmHg Estimated right atrial pressure of 20 mmHg No pulmonic regurgitation. DESCRIPTION: Rhythm appeared to be atrial fibrillation. This was a moderately technically difficult echocardiogram. This was a 2D, M-mode, color flow Doppler examination. CONCLUSIONS: 1. Mild left ventricle dilatation at end-diastole. Moderate to severe mixed eccentric/concentric left ventricle hypertrophy. Moderate to severe global LV hypokinesis. Severe reduction in overall LV systolic function. LVEF 25% by visual estimate. 2. Mild mitral annular calcification. Mild mitral regurgitation. 3. Severe left atrial dilatation by left atrial volume index. 4. At least mild right ventricle hypertrophy. At least mild reduction in overall RV systolic function. At least moderate right atrial dilatation by visual assessment. Structurally normal tricuspid leaflets with mild tricuspid regurgitation, suggestive of at least moderate elevation of estimated right ventricle systolic pressure (at least 51 mmHg). Inferior vena cava plethora suggestive of elevated CVP of at least 20 mmHg. 5. Tiny pericardial effusion. No diastolic chamber collapse.
--- NOTE | 2020-12-31 19:07 | IPN ---
NEPHROLOGY PROGRESS NOTE DATE: 12/31/2020 SUBJECTIVE: Patient seen and examined this morning at the bedside. He denies any complaints. Reports he has been urinating profusely and his shortness of breath continues to improve. Laboratory studies show improving renal function. OBJECTIVE: VITAL SIGNS: Temperature 97.2, pulse 78, respiratory rate 20, blood pressure 140/90, saturating 96% on room air. INTAKE AND OUTPUT: Intake yesterday was recorded as 2.1 liters. He had 4 incontinent voids. Weight in the bed scale today is 130.1 kg, which is significantly lower than on admission. GENERAL: Patient is seen sitting in the chair and walking around the room, middle-age male, obese, awake, alert, oriented, in no distress. HEENT: Extraocular muscles intact. Tongue is moist. Neck is supple. Jugular veins are not elevated while he is sitting upright. HEART SOUNDS: Irregular. S1. S2. There is ongoing 1+ edema of the lower extremities. It is improved as compared to yesterday. LUNGS: Clear to auscultation. No crackle or rale. He is comfortable on room air. ABDOMEN: Obese and nontender. NEUROLOGIC: Oriented times three, interactive, conversational, at baseline mentation. LABORATORY STUDIES: White count 7.2, hemoglobin 14.8, platelets 185. Sodium 144, potassium 3.7, bicarbonate 35, BUN 27, creatinine 1.5. Echocardiogram shows severe reduction in systolic function, left ventricular ejection fraction 25% and at least mild reduction in overall systolic function. Teeny pericardial effusion. INPATIENT MEDICATIONS: Reviewed by myself. He continues on Lasix 60 mg intravenous (IV) twice a day. His Isordil was stopped. He is now on Imdur 60 mg by mouth daily and he is now on atenolol 100 mg by mouth daily. PROBLEMS: 1. Decompensated systolic congestive heart failure. Echocardiogram is noted. Patient is going to need ischemic workup of his cardiomyopathy. For now, we are working on his volume status. He is diuresing well. I will continue him on Lasix 60 mg IV twice a day. I suspect he can be switched over to oral diuretic in another 24 hours. Given his depressed ejection fraction, if his creatinine remains stable in the mid-ones, he can probably be started on a low dose angiotensin converting enzyme (GALE), angiotensin receptor mary (ARB) or Entresto, if cardiology would like to do that. 2. Chronic kidney disease (CKD) stage III. Patient likely has underlying CKD stage III that is diagnosed on this admission. We will see where his renal function ends up once his volume status is optimized. There is no proteinuria on his urinalysis. However, patient does have an indication for GALE or ARB therapy (depressed ejection fraction). 3. Hypertension. His antihypertensives were adjusted today. He is on atenolol and Imdur. His blood pressure will also improve with diuresis. 4. Atrial fibrillation. He is rate controlled with beta mary and anticoagulated with Eliquis.
[2020-12-31 20:00] VITALS: BP 136/86
[2021-01-01] VITALS (16 sets, daily range): BP systolic 134–167; BP diastolic 81–108; O2SAT 93–98
[2021-01-01] MEDS: hydrALAZINE 20MG/ML 1ML VIAL (J0360 PER 20MG) IV PRN ×2 (00:37→23:56)
[2021-01-01] MEDS: SLF 3 ML SYR IV SCH ×3 (05:42→20:58)
[2021-01-01 05:46] LABS: HEMOGLOBIN 15.2 g/dl (13.5-17.5); MEAN CORPUSCULAR HEMOGLOBIN 30.3 pg (27.0-33.0); MEAN CORPUSCULAR VOLUME 91.6 fl (80.0-96.0); PLATELET COUNT, AUTOMATED 201 10^3/uL (150-450); RED BLOOD COUNT 5.02 10^6/uL (4.30-6.10); WHITE BLOOD COUNT 7.1 10^3/uL (4.0-10.0)
[2021-01-01 06:18] LABS: BLOOD UREA NITROGEN 28 MG/DL (7-18); CALCIUM LEVEL 8.3 MG/DL (8.5-10.1); CARBON DIOXIDE LEVEL 34 MEQ/L (21-32); CHLORIDE LEVEL 108 MEQ/L (98-107); CREATININE FOR GFR 1.33 MG/DL (0.70-1.30); GLOMERULAR FILTRATION RATE > 60.0 (>56); GLUCOSE, FASTING 108 MG/DL (70-100); MAGNESIUM LEVEL 2.2 MG/DL (1.8-2.4); POTASSIUM SERUM 3.5 MEQ/L (3.5-5.1); SODIUM LEVEL 144 MEQ/L (136-145)
[2021-01-01] MEDS ORDERED: ISOSORBIDE MON. (IMDUR) 60 MG XR TAB PO SCH (09:00)
[2021-01-01] MEDS ORDERED: POTASSIUM CHLORIDE 10 MEQ SR TABLET PO SCH (09:00)
[2021-01-01] MEDS: OMEPRAZOLE 20 MG CAP PO SCH (09:39)
[2021-01-01] MEDS: APIXABAN 5 MG TAB (ELIQUIS) PO SCH ×2 (09:43→20:57)
[2021-01-01] MEDS: atenoloL 50 MG TAB PO SCH (09:44)
[2021-01-01] MEDS: FUROSEMIDE 100MG/10ML VIAL (J1940) IV SCH (09:45)
--- NOTE | 2021-01-01 10:29 | IPN ---
PROGRESS NOTE DATE: 01/01/2021 SUBJECTIVE: Patient denies any chest pain, pressure, tightness. Shortness of breath has improved. He denies any dyspnea on exertion, paroxysmal nocturnal dyspnea (PND) or orthopnea. Denies any near syncope, lightheadedness. Patient has been net negative balance; negative 2315 yesterday. Current weight is 131.2 kilos from admission weight of 138.4 kg. PHYSICAL EXAMINATION: VITAL SIGNS: Temperature 98, pulse 106, respiratory rate 18, blood pressure 148/92, 94% on room air. GENERAL: Patient is awake, alert, oriented to person, place and time, answering questions appropriately. No respiratory distress or use of respiratory accessory muscles. HEENT: Moist mucous membranes. No cervical lymphadenopathy or thyromegaly. No carotid bruit. No jugular venous distention (JVD). HEART: S1, S2. Irregularly irregular and tachycardic. 1+ pitting edema. No carotid bruit. LUNGS: Diminished. Fine crackles at bilateral bases, but clear in upper lobes. ABDOMEN: Obese, soft, nontender, nondistended. EXTREMITIES: Trace edema bilateral lower extremities. LABORATORY DATA: Laboratory data, imaging studies and microbiology have been reviewed. Echocardiogram: Ejection fraction 25% with concentric left ventricular hypertrophy (LVH). Mild mitral regurgitation. ASSESSMENT: This is a 50-year-old male admitted on 12/29/2020 with history of obesity, prior history of smoking, found to have new onset atrial fibrillation complicated by congestive heart failure, hypertensive urgency type 2, non-ST segment elevation myocardial infarction and acute kidney injury. Active issues are as follows: 1. New onset atrial fibrillation. Ejection fraction at 25% with decreased systolic ejection fraction. Patient was diuresed, developed acute kidney injury. Currently on Lasix 60 mg intravenous (IV) twice a day, managed by nephrology. Soil Conservation Aide, Dr. Sepulveda, has been consulted to determine the need for coronary angiogram versus medical treatment and outpatient referral. Kidney function is significantly improved. He is on strict intake and output (I and O), daily weights and fluid restriction. 2. Atrial fibrillation with rapid ventricular rate. Currently on atenolol 150 mg daily. May need to titrate to 100 mg twice a day for better control. Currently on Eliquis 5 mg twice a day for anticoagulation. 3. Hypertension. Currently on isosorbide and atenolol. Angiotensin converting enzyme (GALE) and angiotensin receptor mary (ARB) have been held secondary to recent acute kidney injury. Defer to cardiology when patient can be started on Entresto or trial of GALE inhibitor. 4. Acute kidney injury. Improving on IV Lasix, currently. Nephrology consulted. DISPOSITION: Defer to pile trimmer whether patient is to be managed conservatively versus transfer to [facility] for coronary angiogram. MTDD
[2021-01-01] MEDS: ENTRESTO 24-26MG TABLET (SACUBITRIL/VALSARTAN) PO SCH ×2 (11:14→20:57)
--- NOTE | 2021-01-01 11:25 | CR ---
CARDIOLOGY CONSULTATION DATE: 01/01/2021 REFERRING PHYSICIAN: Cher Ozuna M.D. REASON FOR CONSULTATION: Congestive heart failure, atrial fibrillation. HISTORY OF PRESENT ILLNESS: Mr. Arvizu is a 50-year-old man who was admitted to [facility] four days ago for congestive heart failure associated with atrial fibrillation with rapid ventricular response. He had been actually seen in the emergency room two days prior, but refused hospitalization, but then came the following day and was admitted. He reports the onset of symptoms started approximately three weeks ago, when he started experiencing mild exertional dyspnea, but it eventually progressed to orthopnea, paroxysmal nocturnal dyspnea (PND) and resting dyspnea, at which point he was forced to the hospital. He also reported he has had some degree of peripheral edema for years, usually would be present during the day towards the end of his shift (he works as a construction engineering manager), but typically would resolve by the morning and never paid much attention to it. In the emergency room, he was found to be in congestive heart failure by typical clinical exam, chest x-ray and elevated BNP. He was given diuretics, which unfortunately led to some worsening of his renal function and Dr. Garg was involved in his care. He has been receiving diuretics. He received atenolol for rate control and hydralazine/isosorbide combination for blood pressure and today he tells me he is already feeling much improved, but he still feels that he is quite far from his baseline. Patient has not seen a physician in many, many years. He recalls that he had elevated BP in the past, but he never paid much attention, because it was not always sustained. He was able to work very laborious work until three weeks ago, and even the day prior to admission to the emergency room, he was quite physically active, and even though he was very short of breath, he was still able to complete his work. He denies any chest pain. He denies any sensation of palpitations. OUTPATIENT MEDICATIONS: None. ALLERGIES: No known drug allergies (NKDA). SOCIAL HISTORY: Patient is , father of five children. He works construction, principally for himself. He intermittently smoked throughout his life, but never for very long or very heavy. He does report considerable consumption of beer, typically on weekends. On some weekends, he would have quite a lot. On other weekends, five or six. Typically does not drink during the week. No drug use. FAMILY HISTORY: Patient's father had coronary artery disease (PCI), chronic obstructive pulmonary disease (COPD) and eventually of progressive respiratory failure. He has several siblings. None of them have cardiovascular disease that patient is aware of. REVIEW OF SYSTEMS: Patient denies any recent fever, chills sickness, nausea, vomiting, diarrhea. He has had paroxysmal nocturnal dyspnea (PND) for only about a week. No chest pain. No syncope or near syncope. Peripheral edema has been present intermittently for years. He denies any significant weight change as of late. CURRENT MEDICATIONS: - potassium 20 mEq twice a day - isosorbide mononitrate 60 mg daily - omeprazole 20 mg daily - atenolol 150 mg daily - furosemide 60 mg twice a day - hydralazine 10 mg IV as needed for high blood pressure - apixaban 5 mg twice a day - Mylanta - magnesium - Tylenol. PHYSICAL EXAMINATION: GENERAL: Mr. Arvizu is an obese, pleasant 50-year-old man who appears his calendar age. Alert, oriented and appropriate. No apparent distress. VITAL SIGNS: His last set of vital signs: Blood pressure 180/106, but generally in the 140s to 160s, heart rate from 90s to low 100s, no obvious bradycardia at night. I found one 4 beat run of nonsustained ventricular tachycardia (VT) yesterday on telemetry monitoring. Saturation 94% on room air. INTAKE AND OUTPUT: His fluid balance has been recorded consistently negative, 2300 yesterday. Weight was recorded as 131.2 kg, which is only about 3 kg down since admission, though. HEENT: His jugular venous pulse (JVP) is not elevated in the sitting position, so it is unlikely that it is more than10 or 12 cm. LUNGS: Clear. Good air movement. HEART EXAM: Reveals irregular rhythm, somewhat muffled heart sounds consistent with his obesity. I do not appreciate any gallop, rub or murmur. ABDOMEN: Protuberant, but soft without tenderness and obvious shifting dullness. I am unable to estimate the size of the liver and spleen. EXTREMITIES: His peripheral pulses are of good quality. There is peripheral edema to above his knees about 1-2+. NEUROLOGIC: He is intact. Symmetrical strength. LABORATORY DATA: As of today, CBC is normal. Basic metabolic panel: Sodium 144, potassium 3.5, BUN 28, creatinine 1.33, glucose 108, calcium 8.3. His interminable ProBNP was 3900. Two days later it was 2600. His two EKGs both reveal atrial fibrillation with nonspecific repolarization abnormalities. An echocardiogram was performed on 12/29/[address] Lassiter. It reveals moderately severe left ventricular hypertrophy with dilated left ventricle and global systolic dysfunction with ejection fraction estimated in the neighborhood of 25%. There was no hemodynamically significant valvular disease, but at least moderate pulmonary hypertension and elevated central venous pressure was noted. Renal ultrasound revealed normal size kidneys and no signs of obstruction. He had a negative bilateral Doppler of lower extremities except for a cyst behind his knee. Chest x-ray on 12/30/2020 revealed improvement of previous congestive heart failure, but the cardiomegaly was still present. ASSESSMENT AND PLAN: Mr. Arvizu is a 50-year-old man who comes with symptoms for about three weeks that were severe for about one week. He is found to be in atrial fibrillation with rapid ventricular response and in systolic congestive heart failure. The results of the echocardiogram indicate that he very likely has had hypertensive heart disease and probably untreated hypertension for a long time. The left ventricular (LV) dilatation is certainly worrisome. On the other hand, he was very active physically until very recently and reported good exertional tolerance, which makes me think that it is likely that the LV dysfunction is a consequence of atrial fibrillation with rapid ventricular response and patient has tachycardia-induced cardiomyopathy. This would indicate favorable prognosis with rate control. Clinically, patient is much improved and his renal injury to a great degree has recovered. At this point, I believe we can switch him to therapies that have been clearly shown to be beneficial in systolic acute congestive heart failure. I am going to discontinue atenolol and replace it with carvedilol 25 mg twice a day. If this should not be sufficient to control his rate, we can add digoxin or even increase the dose further. I am going to start him on Entresto as evidence based therapy for systolic heart failure, initially in the smallest dose, 50 mg twice a day. We will titrate it accordingly. I am also going to add spironolactone initially in small dose, 12.5 mg daily. I am hoping that these therapies will be tolerated and effective and provided it is so, I foresee that he will be able to be discharged home probably in 48 hours. In the interim, I would continue on telemetry. I had a long discussion with patient about his condition. I explained the thinking behind the current findings and I also explained the future trend. He will definitely need close outpatient followup. Thank you for the consultation. ALIA
--- NOTE | 2021-01-01 13:19 | IPN ---
NEPHROLOGY PROGRESS NOTE DATE: 01/01/2021 SUBJECTIVE: Mr. Arvizu is seen this morning on his bedside. He is sitting in the chair at the time of my visit. He reports feeling much improved since admission. He has been diuresed and his dyspnea and leg edema has improved significantly. He remains in atrial fibrillation on the monitor, though rate is much better controlled now. Patient denies any nausea or vomiting. His echocardiogram results have been back and he was noted to have an ejection fraction of 25%. He did not have any significant valvular heart disease and volume overload was noticed. He was also noted to have pulmonary hypertension. Patient has been seen by Dr. Sepulveda this morning and Dr. Sepulveda has switched his beta mary to carvedilol from atenolol and added low dose spironolactone and Entresto. Patient is already on Eliquis due to atrial fibrillation. He also remains on hydralazine and isosorbide has been stopped. PHYSICAL EXAMINATION: VITAL SIGNS: Temperature 97.4 degrees Fahrenheit, heart rate 86 per minute, respiratory rate 18 per minute, blood pressure 134/102 mmHg, oxygen saturation 97% on room air. INTAKE AND OUTPUT: Records show a negative fluid balance of 2300 over the last 24 hours. His weight is 131.2 kg today. By intake and output records, he is down by 3 kg since admission. HEAD: Atraumatic. NECK: Supple and jugular venous distention (JVD) not abnormally elevated while sitting upright in the chair. LUNGS: Have a few basilar rales. HEART SOUNDS: Irregular due to atrial fibrillation. ABDOMEN: Soft and nontender. Bowel sounds are normal. EXTREMITIES: Without any cyanosis or clubbing. Lower extremity edema is at least 1+. NEUROLOGIC: He is awake, alert and oriented times three. LABORATORY REVIEW: Today's labs show sodium 144, potassium 3.5, chloride 108, CO2 34, BUN 28, creatinine 1.33, glucose 108, calcium 8.3. PROBLEMS: 1. Acute kidney injury. Kidney function is improving nicely, as patient is being diuresed. Most likely, his acute kidney dysfunction was related to decompensated congestive heart failure and rapid atrial fibrillation. His renal ultrasound showed unremarkable kidneys bilaterally. 2. Hypokalemia. This is related to diuretic use. Patient was started on potassium chloride 20 mEq twice a day this morning and now Entresto has been added and also low dose spironolactone has been added by Dr. Sepulveda. We will need to monitor his electrolytes on a daily basis. 3. Congestive heart failure. Patient has systolic congestive heart failure, acute on chronic. He has responded very well to diuretics. I am switching him to oral torsemide 20 mg twice a day. We anticipate that he can be discharged in the next 48 hours if he responds well to current changes in medication. His spironolactone can probably be increased to 25 mg daily. 4. Atrial fibrillation. His ventricular rate is now much better controlled. His beta mary has been switched to carvedilol and he remains on Eliquis.
[2021-01-01] MEDS: TORSEMIDE 20 MG TAB PO SCH (17:55)
[2021-01-01] MEDS: CARVedilol 12.5 MG TAB PO SCH (20:57)
[2021-01-02] VITALS: BP 164/123
[2021-01-02 04:00] VITALS: BP 99/64
[2021-01-02 04:40] LABS: HEMATOCRIT 48.6 % (42.0-52.0); HEMOGLOBIN 16.4 g/dl (13.5-17.5); MEAN CORPUSCULAR HEMOGLOBIN 30.3 pg (27.0-33.0); MEAN CORPUSCULAR HGB CONC 33.7 g/dl (32.0-36.5); MEAN CORPUSCULAR VOLUME 89.7 fl (80.0-96.0); PLATELET COUNT, AUTOMATED 199 10^3/uL (150-450); RED BLOOD COUNT 5.42 10^6/uL (4.30-6.10)
[2021-01-02 05:01] LABS: BLOOD UREA NITROGEN 25 MG/DL (7-18); CALCIUM LEVEL 8.4 MG/DL (8.5-10.1); CARBON DIOXIDE LEVEL 28 MEQ/L (21-32); CHLORIDE LEVEL 112 MEQ/L (98-107); CREATININE FOR GFR 1.25 MG/DL (0.70-1.30); GLOMERULAR FILTRATION RATE > 60.0 (>56); GLUCOSE, FASTING 117 MG/DL (70-100); MAGNESIUM LEVEL 2.2 MG/DL (1.8-2.4); POTASSIUM SERUM 3.4 MEQ/L (3.5-5.1); SODIUM LEVEL 145 MEQ/L (136-145)
[2021-01-02] MEDS: SLF 3 ML SYR IV SCH ×2 (06:55→14:00)
[2021-01-02 07:23] VITALS: BP 122/89
--- NOTE | 2021-01-02 07:57 | IPNPDOC ---
Date Seen The patient was seen on 01/02/21. 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 still w cough productive of white sputum, but less than on admission. no fever or chills. no palpitations. last night, sbp elevated given one dose of iv hydralazine. bedside sbp 122. no c/o cp, pressure, tightness, lightheadedness, or dizziness. creatinine normal. PHYSICAL EXAMINATION: VITAL SIGNS: see below GENERAL: sitting on sofa by the window. able to complete his sentences Patient is awake, alert, oriented to person, place and time, answering questions appropriately. No respiratory distress or use of respiratory accessory muscles. HEENT: Moist mucous membranes. No cervical lymphadenopathy or thyromegaly. No carotid bruit. No jugular venous distention (JVD). HEART: S1, S2. Irregularly irregular 1+ pitting edema. No carotid bruit. LUNGS: Diminished. Fine crackles at bilateral bases, but clear in upper lobes. ABDOMEN: Obese, soft, nontender, nondistended. EXTREMITIES: Trace edema bilateral lower extremities. LABORATORY DATA: Laboratory data, imaging studies and microbiology have been reviewed. Echocardiogram: Ejection fraction 25% with concentric left ventricular hypertrophy (LVH). Mild mitral regurgitation. ASSESSMENT: This is a 50-year-old male admitted on 12/29/2020 with history of obesity, prior history of smoking, found to have new onset atrial fibrillation complicated by congestive heart failure, hypertensive urgency type 2, non-ST segment elevation myocardial infarction and acute kidney injury. Active issues are as follows: acute systolic chf , new onset due to new onset afib w rvr diuresed well normal creatinine on torsemide bid, spironolactone, coreg started on entresto plans for digoxin managed by cardiology dr pastrana net negative and decreased weight New onset atrial fibrillation. on coreg bid and rate controlled. on eliquis uncontrolled Hypertension. improved and tolerating meds-entresto, coreg, spironolactone, torsemide Acute kidney injury due to chf managed by nephrology. obesity bmi 44 complicating care outpt [place] sleep study disposition: defer to cardiology for med dose adjustment possibly home today or in am. VS, I&O, 24H, Fishbone Vital Signs/I&O Vital Signs Date Time Temp Pulse Resp B/P (MAP) Pulse Ox O2 Delivery O2 Flow Rate FiO2 01/02/21 07:23 99.1 109 18 122/89 (100) 97 Room Air I&O- Last 24 Hours up to 6 AM 01/02/21 06:00 Intake Total 780 ml Output Total 2400 ml Balance -1620 ml Laboratory Data 24H LABS Laboratory Tests 2 01/02/21 04:31: Nucleated Red Blood Cells % (auto) 0.0, Anion Gap 5L, Glomerular Filtration Rate > 60.0, Calcium Level 8.4L, Magnesium Level 2.2 CBC/BMP Laboratory Tests 01/02/21 04:31 DEENA LO MD Jan 02, 2021 07:57
[2021-01-02 08:37] VITALS: BP 134/95
[2021-01-02] MEDS: ENTRESTO 24-26MG TABLET (SACUBITRIL/VALSARTAN) PO SCH (08:41)
[2021-01-02] MEDS: TORSEMIDE 20 MG TAB PO SCH (08:41)
[2021-01-02 08:42] VITALS: BP 134/95
[2021-01-02] MEDS: APIXABAN 5 MG TAB (ELIQUIS) PO SCH (08:42)
[2021-01-02] MEDS: OMEPRAZOLE 20 MG CAP PO SCH (08:42)
[2021-01-02] MEDS: CARVedilol 12.5 MG TAB PO SCH (08:42)
[2021-01-02] MEDS ORDERED: SPIRONOLACTONE 12.5MG PER 1/2 TABLET PO SCH (09:00)
[2021-01-02] MEDS ORDERED: POTASSIUM CHLORIDE 10 MEQ SR TABLET PO ONE (09:00)
[2021-01-02] MEDS ORDERED: TORS20TA2 PO (10:29)
[2021-01-02] MEDS ORDERED: CARV12.5 PO (10:29)
[2021-01-02] MEDS ORDERED: ENTR1TAB PO (10:29)
[2021-01-02] MEDS ORDERED: ALDA25TA2 PO (10:29)
--- NOTE | 2021-01-02 10:39 | DS.PDOC ---
Discharge Summary General Date of Admission Dec 29, 2020 at 04:35 Date of Discharge 01/02/21 home care referral for cardiac rehab for systolic chf ef 25% Discharge Summary DISCHARGE DIAGNOSES: New onset atrial fibrillation with rapid ventricular response New onset acute systolic congestive heart failure secondary to tachycardia mediated cardiomyopathy -admission weight of 138.4 kg discharge weight of 131.2 kg Tachycardia mediated cardiomyopathy Acute kidney injury secondary to decompensated acute systolic congestive heart failure Hypokalemia Hypomagnesemia Hypertensive emergency Obesity BMI 44 Prior history of tobacco abuse DISCHARGE MEDICATIONS: SEE BELOW DISCHARGE INSTRUCTIONS: 2 L fluid restriction Daily weights Call Dr. Sepulveda's office for weight gain of 2 pounds or more systolic blood pressure less than 100 or heart rate greater than 120. Primary care physician appointment within 1 week Follow-up with Dr. Sepulveda's office this week within 5 days Home care referral for cardiac rehab due to systolic dysfunction ejection fraction of 25% 2 g sodium diet Diet and weight loss encouraged Primary care physician to refer for sleep study to rule out obstructive sleep apnea HOSPITAL COURSE: 50-year-old male with history of hypertension obesity presents emergency room with acute onset of shortness of breath found to have A. fib with RVR with rate of 1 40-1 60 ,hypertensive emergency with congestive heart failure which is new onset. chest x-ray showing pulmonary edema and clinically with JVD rales and lower extremity edema 2+. Patient was admitted to the intensive care unit and was started on nicardipine drip with good blood pressure control. Given IV amiodarone and metoprolol 25 mg every 6 hourly as well as Lasix 40 mg IV every 6 hourly with significant improvement. Patient was subsequently transferred to the progressive care unit under telemetry and was given atenolol 50 mg twice daily titrated to 75 mg twice daily and simplified to 150 daily with good control. He had episodes of uncontrolled hypertension which was treated with hydralazine and isosorbide due to acute kidney injury of 1.4 and admission which peaked to 1.8 due to Lasix 60 mg IV that was given. Nephrology Dr. Garg was consulted to assist in fluid management in light of acute kidney injury in the setting of decompensated new onset systolic heart failure. Patient was placed on 60 mg IV Lasix twice daily with resolution of the pulmonary edema but with persistent lower extremity edema 1+ bilaterally. Echocardiogram read by Dr. Lassiter showed ejection fraction of 25%. Drs. Pyle who was on-call on was consulted for help in management and decision as to whether patient should get a coronary angiogram in light of new CHF. Patient's troponin leak was deemed to be a type II non-ST elevation [place] secondary to CHF and A. fib with RVR. He was started on Eliquis 5 mg twice daily with no signs of GI bleed. Dr.'s Rocha started the patient on Entresto spironolactone atenolol was discontinued and changed to Coreg with plans for digoxin as outpatient. Dr. Garg manage his diuresis and changed him to torsemide 20 twice daily which he tolerated well with creatinine improving from 1.8-1.3. Patient is to follow-up with Dr. Kitchen as outpatient. He was instructed to check his blood pressure before taking his spironolactone torsemide Entresto Coreg. He was kept in a 2 L fluid restriction strict I's and O's and daily weights during the hospital admission. PHYSICAL EXAMINATION: VITAL SIGNS: see below GENERAL: sitting on sofa by the window. able to complete his sentences Patient is awake, alert, oriented to person, place and time, answering questions appropriately. No respiratory distress or use of respiratory accessory muscles. HEENT: Moist mucous membranes. No cervical lymphadenopathy or thyromegaly. No carotid bruit. No jugular venous distention (JVD). HEART: S1, S2. Irregularly irregular 1+ pitting edema. No carotid bruit. LUNGS: Diminished. Fine crackles at bilateral bases, but clear in upper lobes. ABDOMEN: Obese, soft, nontender, nondistended. EXTREMITIES: Trace edema bilateral lower extremities. LABORATORY DATA: Laboratory data, imaging studies and microbiology have been reviewed. Echocardiogram: Ejection fraction 25% with concentric left ventricular hypertrophy (LVH). Mild mitral regurgitation. CONSULTANTS: Echocardiogram read by Dr. Lassiter Cardiology: Drs. Sepulveda Nephrology: Dr. Ashanti Garg and Dr. Kaveh Garg TIME SPENT ON DISCHARGE 30 MINUTES Vital Signs/I&Os Vital Signs Date Time Temp Pulse Resp B/P (MAP) Pulse Ox O2 Delivery O2 Flow Rate FiO2 01/02/21 08:42 100 134/95 01/02/21 08:37 98.5 20 94 Room Air I&O- Last 24 Hours up to 6 AM 01/02/21 06:00 Intake Total 780 ml Output Total 2400 ml Balance -1620 ml Laboratory Data Labs 24H Laboratory Tests 2 01/02/21 04:31: Nucleated Red Blood Cells % (auto) 0.0, Anion Gap 5L, Glomerular Filtration Rate > 60.0, Calcium Level 8.4L, Magnesium Level 2.2 CBC/BMP Laboratory Tests 01/02/21 04:31 Discharge Medications Scheduled Apixaban (Eliquis) 5 Mg Tablet, 5 MG PO BID Carvedilol (Carvedilol) 12.5 Mg Tablet, 25 MG PO BID Sacubitril/Valsartan (Entresto 24 mg-26 mg Tablet) 1 Each Tablet, 1 TAB PO BID Spironolactone (Aldactone) 25 Mg Tablet, 25 MG PO DAILY Torsemide (Torsemide) 20 Mg Tablet, 40 MG PO DAILY Allergies Coded Allergies: No Known Allergies (Unverified , 12/27/20) DEENA LO MD Jan 02, 2021 10:38
--- NOTE | 2021-01-02 11:02 | IPN ---
PROGRESS NOTE DATE: 01/02/2021 SUBJECTIVE: Mr. Arvizu is feeling really well, would like to go home today. He was able to sleep without difficulty. Telemetry monitoring reveals principally rate-controlled atrial fibrillation. He had one run of nonsustained ventricular tachycardia last night. Denies any paroxysmal nocturnal dyspnea (PND) or orthopnea. Denies any chest pain. OBJECTIVE: VITAL SIGNS: This morning, blood pressure 134/95, heart rate 90s to low 100s. He is afebrile. Saturation 94% on room air. INTAKE AND OUTPUT: Weight was not recorded this morning, but fluid balance yesterday was negative 1600. GENERAL: Central venous pressure (CVP) does not appear high. LUNGS: Clear. HEART EXAM: Reveals irregularly irregular rhythm without gallop, rub or murmur. Rather distant heart sounds consistent with his body habitus. EXTREMITIES: His peripheral edema is essentially gone. NEUROLOGIC: He is intact. LABORATORY DATA: Basic metabolic panel: Sodium 145, potassium 3.4, BUN 25, creatinine 1.3, glucose 117. CBC: Hemoglobin 16.4, hematocrit 48.6, platelet count 199,000. ASSESSMENT AND PLAN: Mr. Arvizu is a 50-year-old man who presented with atrial fibrillation with rapid ventricular response and associated acute congestive heart failure. The echocardiogram is consistent most likely with hypertensive heart disease and now, on top of it, probably tachycardia and cardiomyopathy. He has improved clinically markedly with medical management. At this point, even though it would be my preference that he stays at least one more day, he is really desperate to go home and was cleared by all the remaining physicians, so we will allow him to be discharged. I would keep him on current medications with small changes. I would give him furosemide 40 mg daily, will advance spironolactone to 25 mg daily and continue carvedilol, apixaban and Entresto in current doses. I plan to see him in followup latter this week. I talked to him that he needs to avoid alcohol and needs to avoid strenuous exertion and his diet should be low in sodium. I instructed him to promptly return to hospital if any new problems or worsening symptoms. ALIA
[2021-01-02 11:58] VITALS: BP 147/79
--- NOTE | 2021-01-02 15:33 | IPN ---
PROGRESS NOTE DATE: 01/02/2021 SUBJECTIVE: Mr. Avrizu is seen this morning on his bedside. He is sitting in the chair and reports feeling well. He denies any dyspnea or chest pain. His leg edema has improved significantly. He is still in atrial fibrillation, however, ventricular rate seems to be better controlled now. PHYSICAL EXAMINATION: VITALS: Temperature 98.5 degrees Fahrenheit, heart rate in the 80's, respiratory rate 18 per minute, blood pressure 134/95 mmHg, oxygen saturation 94% on room air. INTAKE/OUTPUT: From yesterday show a negative fluid balance of about 1,600 mL. HEENT: Head is atraumatic. Neck is supple and without JVD or thyroid enlargement. LUNGS: Clear to auscultation. HEART: Sounds are irregular. ABDOMEN: Soft and nontender. Bowel sounds are normal. EXTREMITIES: With no cyanosis or clubbing. There is only a trace of ankle edema. LABORATORY STUDIES: Today's labs showed hemoglobin 16.4 and hematocrit 48.6. Sodium 145, potassium 3.4, BUN 25 and creatinine 1.25,. PROBLEMS: 1. Acute kidney injury superimposed on chronic kidney disease: He probably has mild underlying chronic kidney disease. His kidney function has improved significantly since admission. Electrolytes are stable other than mild hypokalemia. 2. Congestive heart failure: His congestive heart failure was related to rapid atrial fibrillation and systolic dysfunction. Echocardiogram showed ejection fraction of only 25%. His volume status has improved significantly and he seems to be responding very well to Torsemide 20 mg twice a day. Diuretic dose can be adjusted as an outpatient. 3. Hypokalemia: Patient did receive some potassium supplement and has been given 40 mEq one dose today. I feel that he will need nursing home daily potassium supplement which I started yesterday, but has been stopped by the hospitalist. His electrolytes will also need to be monitored as an outpatient. 4. Hypertension: Blood pressure seems to be very well controlled on current dose of beta-mary and diuretic. He is also on Entresto now. 5. Atrial fibrillation with rapid ventricular rate: His ventricular rate is now much better controlled and he remains on anticoagulation along with beta-mary. DISPOSITION: From a renal standpoint, patient can be discharged to home and follow-up as an outpatient. He will need his electrolytes and his volume status monitored over the next few days with adjustment in diuretic and potassium supplement.
[2021-01-03] MEDS ORDERED: HYDR-3713 PO (10:36)
[2021-01-03] MEDS ORDERED: CEFD300CAP PO (10:36)
== END 2021-01-02 15:50 | disposition home health service (06) | DRG 201 ==
LOC: M ED 21:48 → M ED INP 12-29 04:35 → ENRESERV 12-29 07:57 → M PCU 12-29 12:20
PROVIDERS: ADMIT Internal Medicine; ATTEND General Practice
DX: I48.91 Unspecified atrial fibrillation (principal); I50.21 Acute systolic (congestive) heart failure; I27.20 Pulmonary hypertension, unspecified; I42.8 Other cardiomyopathies; N17.9 Acute kidney failure, unspecified; Z68.42 Body mass index [BMI] 45.0-49.9, adult; E83.42 Hypomagnesemia; N18.30 Chronic kidney disease, stage 3 unspecified; I13.0 Hypertensive heart and chronic kidney disease with heart failure and stage 1 through stage 4 chronic kidney disease, or unspecified chronic kidney disease; G47.33 Obstructive sleep apnea (adult) (pediatric); I16.1 Hypertensive emergency; E87.6 Hypokalemia; E66.9 Obesity, unspecified; Z87.891 Personal history of nicotine dependence; Z20.822 Contact with and (suspected) exposure to COVID-19; Z79.899 Other long term (current) drug therapy

== ENCOUNTER 2021-01-03 03:27 | Emergency (ER) | payer MEDICAID ==
[~2021-01-03] VITALS: Ht 175.3 cm; Wt 125.2 kg
[~2021-01-03 03:27] MED LIST changes: +ALDA25TA2 PO; +CARV12.5 PO; +ENTR1TAB PO; +FURO40TA2 PO; +METO50TA7 PO; +TORS20TA2 PO
[2021-01-03] MEDS ORDERED: ONDANSETRON 4MG/2ML VIAL IV ONE (06:30)
[2021-01-03] MEDS ORDERED: MORPHINE 4 MG/ML 1ML VIAL/SYRINGE (J2270) IV ONE (06:40)
[2021-01-03 07:20] LABS: BASO # 0.1 10^3/uL (0.0-0.2); BASO % 0.5 % (0.0-1.0); EOS % 0.4 % (0.0-3.0); HEMATOCRIT 52.6 % (42.0-52.0); HEMOGLOBIN 17.4 g/dl (13.5-17.5); LYMPH # 1.3 10^3/uL (1.5-5.0); LYMPH % 11.5 % (24.0-44.0); MEAN CORPUSCULAR HEMOGLOBIN 29.6 pg (27.0-33.0); MEAN CORPUSCULAR HGB CONC 33.1 g/dl (32.0-36.5); MEAN CORPUSCULAR VOLUME 89.6 fl (80.0-96.0); MONO # 0.9 10^3/uL (0.0-0.8); MONO % 8.3 % (2.0-8.0); NEUTROPHILS # 8.9 10^3/uL (1.5-8.5); PLATELET COUNT, AUTOMATED 221 10^3/uL (150-450); RED BLOOD COUNT 5.87 10^6/uL (4.30-6.10); WHITE BLOOD COUNT 11.2 10^3/uL (4.0-10.0)
[2021-01-03 07:47] LABS: ALBUMIN 3.5 GM/DL (3.2-5.2); BILIRUBIN,DIRECT 0.3 MG/DL (0.0-0.2); BILIRUBIN,TOTAL 1.1 MG/DL (0.2-1.0); TOTAL PROTEIN 6.9 GM/DL (6.4-8.2)
[2021-01-03] MEDS ORDERED: CARVedilol 12.5 MG TAB PO ONE (08:15)
[2021-01-03] MEDS ORDERED: NORCO, ANEXSIA 5/325MG TABLET (HYDROcodone/ACETAMINOPHEN) PO ONE (09:35)
--- NOTE | 2021-01-03 09:44 | REP ---
INDICATION: ruq pain. COMPARISON: 12/30/2020. TECHNIQUE: Single portable AP view of the chest was performed. FINDINGS: There is no acute infiltrate or pulmonary edema. The heart appears to be upper limits of normal in size to slightly enlarged. Mediastinal silhouette is unchanged. There are severe degenerative changes at the right glenohumeral joint. IMPRESSION: No acute pulmonary disease. A preliminary report was provided by [facility] at the time of the exam. <Electronically signed by Tim Martinez > 01/03/21 0914
--- NOTE | 2021-01-03 09:48 | REP ---
INDICATION: right flank pain r/o kidney stone. COMPARISON: None. TECHNIQUE: Standard helical technique without intravenous contrast administration due to right flank pain. Stone protocol utilized. FINDINGS: The lung bases are clear. There is a minimal patchy fibrotic change versus minimal subsegmental atelectasis in the medial basal segment of the right lower lobe. Limited evaluation of the solid intra-organs and gallbladder show no gross abnormalities. There are no choleliths. Limited evaluation of the pancreas and adrenal glands show no gross abnormalities. There is no nephroureterolithiasis, hydronephrosis, or hydroureter. There is a 1 cm sized hyperdense cyst arising from the superior pole of the left kidney. There is minimal bilateral perinephric stranding which is likely chronic. Limited evaluation of the abdominal aorta and para-aortic regions show no gross abnormalities. The bowel loops and the mesenteries are within normal limits. The appendix is well visualized and is within normal limits. There is no evidence of a mass or adenopathy. There is no free fluid or free air. There is a small umbilical hernia which contains a small amount of adipose only. Bone window technique throughout the examination shows the osseous structures to be within normal limits for the patient's age. IMPRESSION: There is no evidence of acute intra-abdominal or intrapelvic disease. CT findings as described above. A preliminary report was given by Simi resendiz at the time the examination was performed. <Electronically signed by Roshan Johnson > 01/03/21 0997
[2021-01-03] MEDS ORDERED: CEFD300CAP PO (10:36)
[2021-01-03] MEDS ORDERED: HYDR-3713 PO (10:36)
[2021-01-03] MEDS ORDERED: CEFDINIR 300 MG CAP (OMNICEF) PO ONE (10:40)
[2021-01-03 10:41] VITALS: BP 160/114
--- NOTE | 2021-01-03 21:36 | ECGEPIP ---
[facility] - ED Test Date: 2021-01-03 Pat Name: JEWELS SALAZAR Department: Room: - Gender: Male Senior Business Manager: JOSE LUISKARINA : 1970 Requested By: ZOLTAN EVERETT PA-C. Order Number: [id number] Reading MD: Kael Arceo Measurements Intervals [place] Rate: 110 P: TN: QRS: 10 QRSD: 104 T: 93 QT: 320 QTc: 433 Interpretive Statements Atrial fibrillation with rapid ventricular response Minimal voltage criteria for LVH, may be normal variant ( [place] product ) NSTTW ABNORMALITY(S) SIMILAR TO 12/29/20 Electronically Signed on 01-03-2021 21:36:26 EDT by Kael Arceo
== END 2021-01-03 10:56 | disposition home or self-care (01) ==
LOC: M ED 03:27
DX: R10.31 Right lower quadrant pain (principal); D72.829 Elevated white blood cell count, unspecified; I48.91 Unspecified atrial fibrillation; Z79.82 Long term (current) use of aspirin; Z79.899 Other long term (current) drug therapy
CPT/HCPCS: 71045; 74176; 80047; 80076; 81001; 83690; 85025; 93005; 93041; 96374; 96375; 99285; J2270; J2405

== ENCOUNTER 2024-11-03 17:18 | Inpatient (IN) | payer OTHER, MEDICAID ==
[~2024-11-03] VITALS: Ht 175.3 cm; Wt 147.9 kg
[~2024-11-03 17:18] MED LIST changes: +CEFD300CAP PO; +FARX1TAB3 PO; +HYDR-3713 PO; +IBUP-1764 PO; +LOSA-527 PO; +METO1TAB33 PO; +METO200T15 PO; +SPIR-10 PO
[2024-11-03 17:53] LABS: BASO # 0.1 10^3/uL (0.0-0.2); BASO % 0.9 % (0.0-1.0); EOS # 0.2 10^3/uL (0.0-0.5); EOS % 2.2 % (0.0-3.0); LYMPH # 1.4 10^3/uL (1.5-5.0); LYMPH % 13.2 % (24.0-44.0); MONO # 1.5 10^3/uL (0.0-0.8); MONO % 14.6 % (2.0-8.0); NEUTROPHILS # 7.0 10^3/uL (1.5-8.5); NEUTROPHILS % 68.7 % (36.0-66.0); PLATELET COUNT, AUTOMATED 178 10^3/uL (150-450)
[2024-11-03 18:02] LABS: INR 1.26
[2024-11-03 18:20] LABS: ALT/SGPT 33.0 U/L (7.0-40); AST/SGOT 37.0 U/L (<34); CALCIUM LEVEL 8.8 MG/DL (8.5-10.1); CARBON DIOXIDE LEVEL 23.0 MMOL/L (20-31); CHLORIDE LEVEL 107.0 MMOL/L (98-107); CREATININE FOR GFR 1.05 MG/DL (0.70-1.30); GLOMERULAR FILTRATION RATE 83.8 (>56); POTASSIUM SERUM 5.1 MMOL/L (3.5-5.1); SODIUM LEVEL 139.0 MMOL/L (136-145)
[2024-11-03] MEDS: METOPROLOL TART 50 MG TAB PO ONE (18:48)
[2024-11-03] MEDS: METOPROLOL 5 MG/5 ML VIAL IV SCH (18:48)
[2024-11-03 19:02] LABS: MAGNESIUM LEVEL 2.1 MG/DL (1.8-2.4)
[2024-11-03 19:37] LABS: FREE T4 1.31 NG/DL (0.89-1.76)
[2024-11-03] MEDS ORDERED: HOME MED LIST COMPLETE! XX SCH (20:55)
[2024-11-04] VITALS (23 sets, daily range): BP systolic 104–137; BP diastolic 79–98; TEMP 96.5–97.8; O2SAT 79–98
[2024-11-04] MEDS ORDERED: MAALOX 30 ML SUSP *UDC PO PRN (02:35)
[2024-11-04] MEDS ORDERED: MOM 30 ML SUSPENSION UDC PO PRN (02:35)
[2024-11-04] MEDS ORDERED: ISOVUE-370 76% 100 ML VIAL As Ordered ONE (02:54)
[2024-11-04 03:17] LABS: C REACTIVE PROTEIN QUANTITATIV 2.39 MG/DL (<1.0); PHOSPHORUS LEVEL 3.8 MG/DL (2.5-4.9)
[2024-11-04 03:24] LABS: ERYTHROCYTE SEDIMENTATION RATE 41 mm/hr (0-20)
[2024-11-04 03:47] LABS: ESTIMATED AVERAGE GLUCOSE 117.0 MG/DL (60-110)
[2024-11-04] MEDS: FUROSEMIDE 20 MG/2 ML VIAL IV ONE (04:05)
[2024-11-04] MEDS: ONDANSETRON 4MG ORAL DISINTEGRATING TAB PO PRN (04:06)
[2024-11-04 06:17] LABS: PLATELET COUNT, AUTOMATED 178 10^3/uL (150-450)
[2024-11-04 06:43] LABS: ALT/SGPT 37.0 U/L (7.0-40); AST/SGOT 53.0 U/L (<34); CALCIUM LEVEL 9.0 MG/DL (8.5-10.1); CARBON DIOXIDE LEVEL 22.0 MMOL/L (20-31); CHLORIDE LEVEL 107.0 MMOL/L (98-107); CREATININE FOR GFR 1.12 MG/DL (0.70-1.30); GLOMERULAR FILTRATION RATE 77.6 (>56); MAGNESIUM LEVEL 2.1 MG/DL (1.8-2.4); POTASSIUM SERUM 5.3 MMOL/L (3.5-5.1); SODIUM LEVEL 138.0 MMOL/L (136-145)
[2024-11-04] MEDS: DOCUSATE SODIUM 100 MG CAPSULE PO SCH (09:00)
[2024-11-04] MEDS ORDERED: APIXABAN 5 MG TAB PO SCH (09:00)
[2024-11-04] MEDS: APIXABAN 5 MG TAB PO SCH (09:20)
[2024-11-04] MEDS: PANTOPRAZOLE 40MG TAB PO SCH (09:20)
[2024-11-04] MEDS: DAPAGLIFLOZIN PROPANEDIOL 10 MG TABLET PO SCH (09:20)
[2024-11-04] MEDS: DOXYCYCLINE HYCLATE 100 MG TABLET PO SCH (09:20)
[2024-11-04] MEDS: SPIRONOLACTONE 25 MG TAB PO SCH (09:21)
[2024-11-04] MEDS: ENTRESTO 24-26 MG TABLET (SACUBITRIL/VALSARTAN) PO SCH (09:21)
[2024-11-04] MEDS: METOPROLOL TART 25 MG TABLET PO SCH (09:21)
[2024-11-04] MEDS: ACETAMINOPHEN 325 MG TAB PO PRN (17:22)
[2024-11-05 03:18] VITALS: BP 119/83; TEMP 97.7; O2SAT 93
[2024-11-05 06:28] LABS: PLATELET COUNT, AUTOMATED 206 10^3/uL (150-450)
[2024-11-05 06:57] LABS: CALCIUM LEVEL 8.7 MG/DL (8.5-10.1); CARBON DIOXIDE LEVEL 25.0 MMOL/L (20-31); CHLORIDE LEVEL 106.0 MMOL/L (98-107); CHOLESTEROL LEVEL 88.0 MG/DL (<200); CHOLESTEROL RISK RATIO 2.87 (<5); CREATININE FOR GFR 1.39 MG/DL (0.70-1.30); GLOMERULAR FILTRATION RATE 59.9 (>56); LDL CHOLESTEROL 45.6 MG/DL (<100); NON-HDL-C 57.4 MG/DL; POTASSIUM SERUM 5.3 MMOL/L (3.5-5.1); SODIUM LEVEL 139.0 MMOL/L (136-145); TRIGLYCERIDES LEVEL 59.0 MG/DL (<150)
[2024-11-05 07:21] VITALS: BP 145/75; TEMP 97.8; O2SAT 92
[2024-11-05] MEDS: NYSTATIN CREAM 15GM TOP SCH (09:39)
[2024-11-05 12:12] VITALS: BP 123/61; TEMP 98.1; O2SAT 94
[2024-11-05] MEDS: MORPHINE 4 MG/ML 1 ML VIAL IV PRN (14:27)
[2024-11-05 15:45] VITALS: BP 105/81; TEMP 98.4; O2SAT 91
[2024-11-05 19:52] VITALS: BP 154/64; TEMP 97; O2SAT 92
[2024-11-05] MEDS: MORPHINE 2 MG/ML 1 ML VIAL IV ONE (20:30)
[2024-11-05 23:40] VITALS: BP 104/64; TEMP 97.1; O2SAT 94
[2024-11-06 04:07] VITALS: BP 102/80; TEMP 97; O2SAT 95
[2024-11-06 07:12] LABS: PLATELET COUNT, AUTOMATED 224 10^3/uL (150-450)
[2024-11-06 07:35] VITALS: BP 110/80; TEMP 97.6; O2SAT 91
[2024-11-06 07:49] LABS: C REACTIVE PROTEIN QUANTITATIV 2.59 MG/DL (<1.0); CALCIUM LEVEL 8.3 MG/DL (8.5-10.1); CARBON DIOXIDE LEVEL 22.0 MMOL/L (20-31); CHLORIDE LEVEL 107.0 MMOL/L (98-107); CREATININE FOR GFR 1.26 MG/DL (0.70-1.30); GLOMERULAR FILTRATION RATE 67.4 (>56); MAGNESIUM LEVEL 2.0 MG/DL (1.8-2.4); POTASSIUM SERUM 5.6 MMOL/L (3.5-5.1); SODIUM LEVEL 139.0 MMOL/L (136-145)
[2024-11-06] MEDS: ENTRESTO 24-26 MG TABLET (SACUBITRIL/VALSARTAN) PO SCH (09:00)
[2024-11-06 09:55] VITALS: BP 111/74
[2024-11-06] MEDS: FUROSEMIDE 20 MG/2 ML VIAL IV SCH (10:02)
[2024-11-06 11:57] VITALS: BP 107/82; TEMP 97.8; O2SAT 98
[2024-11-06] MEDS: DEXTROSE 50% 50 ML SYRINGE IV STA (14:51)
[2024-11-06] MEDS: PATIROMER SORBITEX CALCIUM 8.4GM POWDER PACKET PO STA (14:52)
[2024-11-06] MEDS: FUROSEMIDE 40 MG/4 ML VIAL IV ONE (14:54)
[2024-11-06] MEDS: HumuLIN R (REGULAR) INSULIN (NovoLIN R) **100 U/ML** PER UNIT IV STA (14:55)
[2024-11-06 15:48] VITALS: BP 117/70; TEMP 97.8; O2SAT 92
[2024-11-06 17:32] LABS: CALCIUM LEVEL 8.3 MG/DL (8.5-10.1); CARBON DIOXIDE LEVEL 30.0 MMOL/L (20-31); CHLORIDE LEVEL 105.0 MMOL/L (98-107); CREATININE FOR GFR 1.49 MG/DL (0.70-1.30); GLOMERULAR FILTRATION RATE 55.1 (>56); POTASSIUM SERUM 5.2 MMOL/L (3.5-5.1); SODIUM LEVEL 140.0 MMOL/L (136-145)
[2024-11-06 20:00] VITALS: BP 129/89; TEMP 96.7; O2SAT 95
[2024-11-07] VITALS (8 sets, daily range): BP systolic 108–124; BP diastolic 61–84; TEMP 96.8–98; O2SAT 92–97
[2024-11-07 06:59] LABS: BASO # 0.1 10^3/uL (0.0-0.2); BASO % 0.4 % (0.0-1.0); EOS # 0.0 10^3/uL (0.0-0.5); EOS % 0.1 % (0.0-3.0); LYMPH # 1.2 10^3/uL (1.5-5.0); LYMPH % 6.8 % (24.0-44.0); MONO # 1.8 10^3/uL (0.0-0.8); MONO % 10.2 % (2.0-8.0); NEUTROPHILS # 14.5 10^3/uL (1.5-8.5); NEUTROPHILS % 81.9 % (36.0-66.0); PLATELET COUNT, AUTOMATED 207 10^3/uL (150-450)
[2024-11-07 07:09] LABS: ERYTHROCYTE SEDIMENTATION RATE 21 mm/hr (0-20)
[2024-11-07 07:33] LABS: CALCIUM LEVEL 8.4 MG/DL (8.5-10.1); CARBON DIOXIDE LEVEL 23.0 MMOL/L (20-31); CHLORIDE LEVEL 107.0 MMOL/L (98-107); CREATININE FOR GFR 1.33 MG/DL (0.70-1.30); GLOMERULAR FILTRATION RATE 63.1 (>56); MAGNESIUM LEVEL 1.7 MG/DL (1.8-2.4); POTASSIUM SERUM 4.9 MMOL/L (3.5-5.1); SODIUM LEVEL 142.0 MMOL/L (136-145)
[2024-11-07 07:34] LABS: C REACTIVE PROTEIN QUANTITATIV 3.26 MG/DL (<1.0)
[2024-11-07] MEDS: FUROSEMIDE 40 MG/4 ML VIAL IV SCH (09:06)
[2024-11-07] MEDS: MAGNESIUM OXIDE 400 MG TAB PO SCH (11:03)
[2024-11-07] MEDS: LACTIC ACID 12% LOTION 225 GM BTL EXT SCH (15:31)
[2024-11-07] MEDS: MORPHINE 2 MG/ML 1 ML VIAL IV PRN (21:07)
[2024-11-08 03:23] VITALS: BP 110/85; TEMP 97.4; O2SAT 95
[2024-11-08 06:04] LABS: BASO # 0.1 10^3/uL (0.0-0.2); BASO % 0.4 % (0.0-1.0); EOS # 0.2 10^3/uL (0.0-0.5); EOS % 1.1 % (0.0-3.0); LYMPH # 1.2 10^3/uL (1.5-5.0); LYMPH % 8.4 % (24.0-44.0); MONO # 1.5 10^3/uL (0.0-0.8); MONO % 10.7 % (2.0-8.0); NEUTROPHILS # 11.0 10^3/uL (1.5-8.5); NEUTROPHILS % 79.0 % (36.0-66.0); PLATELET COUNT, AUTOMATED 209 10^3/uL (150-450)
[2024-11-08 06:30] LABS: CALCIUM LEVEL 8.3 MG/DL (8.5-10.1); CARBON DIOXIDE LEVEL 29.0 MMOL/L (20-31); CHLORIDE LEVEL 103.0 MMOL/L (98-107); CREATININE FOR GFR 1.24 MG/DL (0.70-1.30); GLOMERULAR FILTRATION RATE 68.7 (>56); MAGNESIUM LEVEL 1.8 MG/DL (1.8-2.4); POTASSIUM SERUM 4.4 MMOL/L (3.5-5.1); SODIUM LEVEL 141.0 MMOL/L (136-145)
[2024-11-08 08:15] VITALS: BP 116/86; TEMP 97.4; O2SAT 95
[2024-11-08 11:43] VITALS: BP 120/73; TEMP 97; O2SAT 96
[2024-11-08 15:31] VITALS: BP 113/76; TEMP 96.6; O2SAT 92
[2024-11-08] MEDS: FUROSEMIDE 20 MG/2 ML VIAL IV ONE (16:31)
[2024-11-08 19:25] VITALS: BP 128/72; TEMP 97.5; O2SAT 94
[2024-11-08 23:18] VITALS: BP 121/92; TEMP 97.3; O2SAT 99
[2024-11-09 03:16] VITALS: BP 121/92; TEMP 97.8; O2SAT 93
[2024-11-09 06:04] LABS: BASO # 0.1 10^3/uL (0.0-0.2); BASO % 0.7 % (0.0-1.0); EOS # 0.2 10^3/uL (0.0-0.5); EOS % 1.7 % (0.0-3.0); LYMPH # 1.2 10^3/uL (1.5-5.0); LYMPH % 11.8 % (24.0-44.0); MONO # 1.4 10^3/uL (0.0-0.8); MONO % 13.8 % (2.0-8.0); NEUTROPHILS # 7.3 10^3/uL (1.5-8.5); NEUTROPHILS % 71.8 % (36.0-66.0); PLATELET COUNT, AUTOMATED 203 10^3/uL (150-450)
[2024-11-09 06:26] LABS: CALCIUM LEVEL 8.2 MG/DL (8.5-10.1); CARBON DIOXIDE LEVEL 31.0 MMOL/L (20-31); CHLORIDE LEVEL 104.0 MMOL/L (98-107); CREATININE FOR GFR 1.17 MG/DL (0.70-1.30); GLOMERULAR FILTRATION RATE 73.6 (>56); MAGNESIUM LEVEL 1.9 MG/DL (1.8-2.4); POTASSIUM SERUM 4.0 MMOL/L (3.5-5.1); SODIUM LEVEL 143.0 MMOL/L (136-145)
[2024-11-09 07:40] VITALS: BP 115/76; TEMP 97.3; O2SAT 98
[2024-11-09 09:10] VITALS: BP 118/82
[2024-11-09 11:36] VITALS: BP 111/77; TEMP 97; O2SAT 98
[2024-11-09 16:20] VITALS: BP 152/80; TEMP 97.3; O2SAT 97
[2024-11-09 19:25] VITALS: BP 112/68; TEMP 97.2; O2SAT 93
[2024-11-10 03:07] VITALS: BP 115/79; TEMP 97.4; O2SAT 94
[2024-11-10 06:10] LABS: BASO # 0.1 10^3/uL (0.0-0.2); BASO % 0.9 % (0.0-1.0); EOS # 0.2 10^3/uL (0.0-0.5); EOS % 2.4 % (0.0-3.0); LYMPH # 1.2 10^3/uL (1.5-5.0); LYMPH % 13.4 % (24.0-44.0); MONO # 1.0 10^3/uL (0.0-0.8); MONO % 11.5 % (2.0-8.0); NEUTROPHILS # 6.4 10^3/uL (1.5-8.5); NEUTROPHILS % 71.5 % (36.0-66.0); PLATELET COUNT, AUTOMATED 183 10^3/uL (150-450)
[2024-11-10 06:42] LABS: CALCIUM LEVEL 8.6 MG/DL (8.5-10.1); CARBON DIOXIDE LEVEL 30 MMOL/L (20-31); CHLORIDE LEVEL 105 MMOL/L (98-107); CREATININE FOR GFR 1.21 MG/DL (0.70-1.30); GLOMERULAR FILTRATION RATE 70.7 (>56); MAGNESIUM LEVEL 2.0 MG/DL (1.8-2.4); POTASSIUM SERUM 4.3 MMOL/L (3.5-5.1); SODIUM LEVEL 145 MMOL/L (136-145)
[2024-11-10 07:15] VITALS: BP 125/86; TEMP 98.1; O2SAT 95
[2024-11-10] MEDS: NICOTINE 14 MG/24 HR TRANSDERMAL TD PRN (15:22)
[2024-11-10 15:57] VITALS: BP 145/93; TEMP 97.9; O2SAT 91
[2024-11-10 18:34] LABS: HIV 1&2 SCREEN NEGATIVE (NEGATIVE)
[2024-11-10 18:37] LABS: HEPATITIS C VIRUS ABY INDEX 0.07 INDEX (<0.8)
[2024-11-10 20:08] VITALS: BP 136/95; TEMP 97; O2SAT 92
[2024-11-10 22:39] VITALS: BP 99/62; TEMP 97.9; O2SAT 92
[2024-11-11 05:02] VITALS: BP 140/90; TEMP 98.6; O2SAT 94
[2024-11-11 05:52] LABS: BASO # 0.1 10^3/uL (0.0-0.2); BASO % 0.7 % (0.0-1.0); EOS # 0.3 10^3/uL (0.0-0.5); EOS % 3.2 % (0.0-3.0); LYMPH # 1.2 10^3/uL (1.5-5.0); LYMPH % 14.6 % (24.0-44.0); MONO # 1.2 10^3/uL (0.0-0.8); MONO % 14.6 % (2.0-8.0); NEUTROPHILS # 5.5 10^3/uL (1.5-8.5); NEUTROPHILS % 66.5 % (36.0-66.0); PLATELET COUNT, AUTOMATED 170 10^3/uL (150-450)
[2024-11-11 06:13] LABS: C REACTIVE PROTEIN QUANTITATIV 2.98 MG/DL (<1.0)
[2024-11-11 06:14] LABS: CALCIUM LEVEL 8.1 MG/DL (8.5-10.1); CARBON DIOXIDE LEVEL 30.0 MMOL/L (20-31); CHLORIDE LEVEL 104.0 MMOL/L (98-107); CREATININE FOR GFR 1.18 MG/DL (0.70-1.30); GLOMERULAR FILTRATION RATE 72.9 (>56); MAGNESIUM LEVEL 1.9 MG/DL (1.8-2.4); POTASSIUM SERUM 4.0 MMOL/L (3.5-5.1); SODIUM LEVEL 146.0 MMOL/L (136-145)
[2024-11-11 12:00] VITALS: BP 117/79; TEMP 97.7; O2SAT 96
[2024-11-11 19:37] VITALS: BP 131/92; TEMP 98.6; O2SAT 97
[2024-11-11] MEDS: RAMELTEON 8 MG TAB PO PRN (21:32)
[2024-11-12 03:34] VITALS: BP 126/83; TEMP 98.4; O2SAT 95
[2024-11-12 06:59] LABS: CALCIUM LEVEL 8.0 MG/DL (8.5-10.1); CARBON DIOXIDE LEVEL 32.0 MMOL/L (20-31); CHLORIDE LEVEL 101.0 MMOL/L (98-107); CREATININE FOR GFR 1.19 MG/DL (0.70-1.30); GLOMERULAR FILTRATION RATE 72.1 (>56); MAGNESIUM LEVEL 1.9 MG/DL (1.8-2.4); POTASSIUM SERUM 3.8 MMOL/L (3.5-5.1); SODIUM LEVEL 143.0 MMOL/L (136-145)
[2024-11-12 08:26] VITALS: BP 126/83
[2024-11-12] MEDS ORDERED: LEVO75TAB PO (09:55)
[2024-11-12] MEDS ORDERED: ELIQ5TAB PO (09:55)
[2024-11-12] MEDS ORDERED: LASI40TA9 PO (09:55)
[2024-11-12] MEDS ORDERED: MAGN400T33 PO (09:55)
[2024-11-12] MEDS ORDERED: ENTR1TAB PO (09:55)
[2024-11-12] MEDS ORDERED: METO1TAB87 PO (09:55)
[2024-11-12] MEDS ORDERED: FARX1TAB3 PO (09:55)
[2024-11-12] MEDS ORDERED: OXYC-517 PO (11:29)
== END 2024-11-12 17:31 | disposition home health service (06) | DRG 201 ==
LOC: EDBD 17:18 → M ED 17:18 → M ED INP 23:52 → M PCU 11-04 03:38 → M MSPAV 11-10 22:29
PROVIDERS: ADMIT Student in an Organized Health Care Education/Training Program; ATTEND Student in an Organized Health Care Education/Training Program
PROC: B246ZZZ Ultrasonography of Right and Left Heart (ICD-10-PCS; principal; 2024-11-04)
DX: I48.91 Unspecified atrial fibrillation (principal); I50.23 Acute on chronic systolic (congestive) heart failure; I42.8 Other cardiomyopathies; Z68.43 Body mass index [BMI] 50.0-59.9, adult; L03.116 Cellulitis of left lower limb; E83.42 Hypomagnesemia; N18.30 Chronic kidney disease, stage 3 unspecified; K76.1 Chronic passive congestion of liver; E66.01 Morbid (severe) obesity due to excess calories; L97.918 Non-pressure chronic ulcer of unspecified part of right lower leg with other specified severity; L97.928 Non-pressure chronic ulcer of unspecified part of left lower leg with other specified severity; L97.518 Non-pressure chronic ulcer of other part of right foot with other specified severity; E87.5 Hyperkalemia; I87.2 Venous insufficiency (chronic) (peripheral); R60.0 Localized edema; K21.9 Gastro-esophageal reflux disease without esophagitis; G47.33 Obstructive sleep apnea (adult) (pediatric); F17.220 Nicotine dependence, chewing tobacco, uncomplicated; I73.9 Peripheral vascular disease, unspecified; B96.1 Klebsiella pneumoniae [K. pneumoniae] as the cause of diseases classified elsewhere; B95.61 Methicillin susceptible Staphylococcus aureus infection as the cause of diseases classified elsewhere; B95.5 Unspecified streptococcus as the cause of diseases classified elsewhere; I89.0 Lymphedema, not elsewhere classified; Z91.148 Patient's other noncompliance with medication regimen for other reason; Z79.01 Long term (current) use of anticoagulants; Z79.899 Other long term (current) drug therapy

== ENCOUNTER 2024-12-03 13:33 | Inpatient (IN) | payer MEDICAID, OTHER ==
[~2024-12-03] VITALS: Ht 175.3 cm; Wt 140.7 kg
[~2024-12-03 13:33] MED LIST changes: +LEVO75TAB PO; +MAGN400T33 PO; +METO1TAB87 PO; +OXYC-517 PO
[2024-12-03 14:02] LABS: BASO # 0.1 10^3/uL (0.0-0.2); BASO % 1.0 % (0.0-1.0); EOS # 0.1 10^3/uL (0.0-0.5); EOS % 1.2 % (0.0-3.0); LYMPH # 1.3 10^3/uL (1.5-5.0); LYMPH % 14.8 % (24.0-44.0); MONO # 0.9 10^3/uL (0.0-0.8); MONO % 9.7 % (2.0-8.0); NEUTROPHILS # 6.5 10^3/uL (1.5-8.5); NEUTROPHILS % 72.9 % (36.0-66.0); PLATELET COUNT, AUTOMATED 280 10^3/uL (150-450)
[2024-12-03 14:15] LABS: INR 1.56
[2024-12-03 14:36] LABS: ALT/SGPT 21.0 U/L (7.0-40); AST/SGOT 25.0 U/L (<34); CALCIUM LEVEL 8.9 MG/DL (8.5-10.1); CARBON DIOXIDE LEVEL 28.0 MMOL/L (20-31); CHLORIDE LEVEL 104.0 MMOL/L (98-107); CK-MB VALUE MASS 2.4 NG/ML (<3.6); CPK CREATINE PHOSPHOKINASE 33.0 U/L (46-171); CREATININE FOR GFR 1.1 MG/DL (0.70-1.30); GLOMERULAR FILTRATION RATE 79.3 (>56); MB/CK RELATIVE INDEX 7.27 (< OR =4); POTASSIUM SERUM 5.0 MMOL/L (3.5-5.1); SODIUM LEVEL 142.0 MMOL/L (136-145)
[2024-12-03 14:39] LABS: FREE T4 1.35 NG/DL (0.89-1.76)
[2024-12-03] MEDS: PERCOCET 5MG/325MG TAB PO ONE (14:42)
[2024-12-03] MEDS: METOPROLOL 5 MG/5 ML VIAL IV SCH (14:43)
[2024-12-03] MEDS ORDERED: ISOVUE-370 76% 100 ML VIAL As Ordered ONE (14:56)
[2024-12-03 15:44] LABS: CK-MB VALUE MASS 2.3 NG/ML (<3.6)
[2024-12-03 15:45] LABS: CPK CREATINE PHOSPHOKINASE 33.0 U/L (46-171); MB/CK RELATIVE INDEX 6.96 (< OR =4)
[2024-12-03] MEDS ORDERED: ENTR1TAB PO (17:41)
[2024-12-03] MEDS ORDERED: METO25TA4 PO (17:41)
[2024-12-03] MEDS ORDERED: FARX1TAB3 PO (17:41)
[2024-12-03] MEDS ORDERED: ELIQ5TAB PO (17:41)
[2024-12-03] MEDS ORDERED: MAGN400T35 PO (17:41)
[2024-12-03] MEDS ORDERED: HOME MED LIST COMPLETE! XX SCH (17:45)
[2024-12-03] MEDS: FUROSEMIDE 40 MG/4 ML VIAL IV ONE (17:46)
[2024-12-03 20:09] LABS: MAGNESIUM LEVEL 2.0 MG/DL (1.8-2.4)
[2024-12-03] MEDS: NICOTINE 14 MG/24 HR TRANSDERMAL TD ONE (20:42)
[2024-12-03] MEDS: METOPROLOL TART 25 MG TABLET PO SCH (20:43)
[2024-12-03] MEDS: FUROSEMIDE 20 MG/2 ML VIAL IV SCH (20:44)
[2024-12-03] MEDS: APIXABAN 5 MG TAB PO SCH (20:55)
[2024-12-03] MEDS: MAGNESIUM OXIDE 400 MG TAB PO SCH (20:55)
[2024-12-03] MEDS: ENTRESTO 24-26 MG TABLET (SACUBITRIL/VALSARTAN) PO SCH (22:18)
[2024-12-04] VITALS (7 sets, daily range): BP systolic 117–152; BP diastolic 80–103; TEMP 96.6–98.5; O2SAT 90–98
[2024-12-04 05:32] LABS: PLATELET COUNT, AUTOMATED 276 10^3/uL (150-450)
[2024-12-04 06:15] LABS: ALT/SGPT 22.0 U/L (7.0-40); AST/SGOT 31.0 U/L (<34); CALCIUM LEVEL 9.3 MG/DL (8.5-10.1); CARBON DIOXIDE LEVEL 27.0 MMOL/L (20-31); CHLORIDE LEVEL 103.0 MMOL/L (98-107); CREATININE FOR GFR 1.11 MG/DL (0.70-1.30); GLOMERULAR FILTRATION RATE 78.4 (>56); MAGNESIUM LEVEL 1.9 MG/DL (1.8-2.4); POTASSIUM SERUM 4.1 MMOL/L (3.5-5.1); SODIUM LEVEL 143.0 MMOL/L (136-145)
[2024-12-04] MEDS: DAPAGLIFLOZIN PROPANEDIOL 10 MG TABLET PO SCH (08:08)
[2024-12-04] MEDS ORDERED: FUROSEMIDE 40 MG TAB PO SCH (09:00)
[2024-12-04] MEDS: FUROSEMIDE 40 MG/4 ML VIAL IV SCH (23:07)
[2024-12-05] VITALS (8 sets, daily range): BP systolic 113–132; BP diastolic 71–99; TEMP 96.5–97.4; O2SAT 92–96
[2024-12-05 05:31] LABS: BASO # 0.1 10^3/uL (0.0-0.2); BASO % 1.3 % (0.0-1.0); EOS # 0.3 10^3/uL (0.0-0.5); EOS % 3.5 % (0.0-3.0); LYMPH # 1.2 10^3/uL (1.5-5.0); LYMPH % 12.6 % (24.0-44.0); MONO # 1.2 10^3/uL (0.0-0.8); MONO % 13.5 % (2.0-8.0); NEUTROPHILS # 6.3 10^3/uL (1.5-8.5); NEUTROPHILS % 68.9 % (36.0-66.0); PLATELET COUNT, AUTOMATED 232 10^3/uL (150-450)
[2024-12-05 05:58] LABS: ALT/SGPT 20.0 U/L (7.0-40); AST/SGOT 27.0 U/L (<34); CALCIUM LEVEL 8.2 MG/DL (8.5-10.1); CARBON DIOXIDE LEVEL 34.0 MMOL/L (20-31); CHLORIDE LEVEL 97.0 MMOL/L (98-107); CREATININE FOR GFR 1.27 MG/DL (0.70-1.30); GLOMERULAR FILTRATION RATE 66.7 (>56); MAGNESIUM LEVEL 1.6 MG/DL (1.8-2.4); POTASSIUM SERUM 3.3 MMOL/L (3.5-5.1); SODIUM LEVEL 144.0 MMOL/L (136-145)
[2024-12-05] MEDS: SPIRONOLACTONE 50 MG TAB PO SCH (08:34)
[2024-12-05] MEDS: POTASSIUM CHLORIDE 10MEQ SR TABLET PO SCH (09:19)
[2024-12-05] MEDS: MAGNESIUM OXIDE 400 MG TAB PO SCH (16:20)
[2024-12-06] VITALS (9 sets, daily range): BP systolic 111–134; BP diastolic 69–97; TEMP 96.8–97.6; O2SAT 94–97
[2024-12-06 04:48] LABS: BASO # 0.1 10^3/uL (0.0-0.2); BASO % 1.2 % (0.0-1.0); EOS # 0.3 10^3/uL (0.0-0.5); EOS % 3.5 % (0.0-3.0); LYMPH # 1.3 10^3/uL (1.5-5.0); LYMPH % 17.0 % (24.0-44.0); MONO # 1.0 10^3/uL (0.0-0.8); MONO % 13.1 % (2.0-8.0); NEUTROPHILS # 5.0 10^3/uL (1.5-8.5); NEUTROPHILS % 64.9 % (36.0-66.0); PLATELET COUNT, AUTOMATED 230 10^3/uL (150-450)
[2024-12-06 05:04] LABS: ALT/SGPT 20.0 U/L (7.0-40); AST/SGOT 27.0 U/L (<34); CALCIUM LEVEL 7.9 MG/DL (8.5-10.1); CARBON DIOXIDE LEVEL 34.0 MMOL/L (20-31); CHLORIDE LEVEL 99.0 MMOL/L (98-107); CREATININE FOR GFR 1.05 MG/DL (0.70-1.30); GLOMERULAR FILTRATION RATE 83.8 (>56); MAGNESIUM LEVEL 1.8 MG/DL (1.8-2.4); POTASSIUM SERUM 3.8 MMOL/L (3.5-5.1); SODIUM LEVEL 140.0 MMOL/L (136-145)
[2024-12-06] MEDS ORDERED: FUROSEMIDE 20 MG TAB PO ONE (11:20)
[2024-12-06] MEDS: FUROSEMIDE 20 MG/2 ML VIAL IV ONE (12:48)
[2024-12-06] MEDS: FUROSEMIDE 20 MG/2 ML VIAL IV SCH (16:38)
[2024-12-06] MEDS ORDERED: FUROSEMIDE 20 MG TAB PO SCH (17:00)
[2024-12-07 03:16] VITALS: BP 120/91; TEMP 97.9; O2SAT 95
[2024-12-07 05:20] LABS: BASO # 0.1 10^3/uL (0.0-0.2); BASO % 1.5 % (0.0-1.0); EOS # 0.3 10^3/uL (0.0-0.5); EOS % 3.4 % (0.0-3.0); LYMPH # 1.4 10^3/uL (1.5-5.0); LYMPH % 18.0 % (24.0-44.0); MONO # 1.1 10^3/uL (0.0-0.8); MONO % 14.4 % (2.0-8.0); NEUTROPHILS # 4.9 10^3/uL (1.5-8.5); NEUTROPHILS % 62.4 % (36.0-66.0); PLATELET COUNT, AUTOMATED 209 10^3/uL (150-450)
[2024-12-07 05:50] LABS: ALT/SGPT 22.0 U/L (7.0-40); AST/SGOT 32.0 U/L (<34); CALCIUM LEVEL 8.7 MG/DL (8.5-10.1); CARBON DIOXIDE LEVEL 31.0 MMOL/L (20-31); CHLORIDE LEVEL 98.0 MMOL/L (98-107); CREATININE FOR GFR 1.08 MG/DL (0.70-1.30); GLOMERULAR FILTRATION RATE 81.0 (>56); MAGNESIUM LEVEL 2.0 MG/DL (1.8-2.4); POTASSIUM SERUM 4.2 MMOL/L (3.5-5.1); SODIUM LEVEL 140.0 MMOL/L (136-145)
[2024-12-07 08:00] VITALS: BP 139/94; TEMP 97.6; O2SAT 93
[2024-12-07] MEDS: FUROSEMIDE 40 MG/4 ML VIAL IV SCH (08:41)
[2024-12-07] MEDS ORDERED: FUROSEMIDE 40 MG TAB PO SCH (09:00)
[2024-12-07 12:05] VITALS: BP 109/77; TEMP 97.2; O2SAT 93
[2024-12-07 16:37] VITALS: BP 129/83; TEMP 97.3; O2SAT 94
[2024-12-07 19:11] VITALS: BP 123/90; TEMP 97.6; O2SAT 93
[2024-12-07] MEDS ORDERED: FLUTICASONE PROPIONATE 0.05% NASAL SPRAY 16 GM NARES PRN (20:00)
[2024-12-07 23:05] VITALS: BP 125/81; TEMP 97.4; O2SAT 95
[2024-12-08 03:22] VITALS: BP 116/78; TEMP 97; O2SAT 94
[2024-12-08 06:07] LABS: BASO # 0.1 10^3/uL (0.0-0.2); BASO % 1.4 % (0.0-1.0); EOS # 0.2 10^3/uL (0.0-0.5); EOS % 3.1 % (0.0-3.0); LYMPH # 1.3 10^3/uL (1.5-5.0); LYMPH % 18.3 % (24.0-44.0); MONO # 1.0 10^3/uL (0.0-0.8); MONO % 13.7 % (2.0-8.0); NEUTROPHILS # 4.5 10^3/uL (1.5-8.5); NEUTROPHILS % 63.4 % (36.0-66.0); PLATELET COUNT, AUTOMATED 192 10^3/uL (150-450)
[2024-12-08 06:28] LABS: ALT/SGPT 20.0 U/L (7.0-40); AST/SGOT 26.0 U/L (<34); CALCIUM LEVEL 8.7 MG/DL (8.5-10.1); CARBON DIOXIDE LEVEL 32.0 MMOL/L (20-31); CHLORIDE LEVEL 100.0 MMOL/L (98-107); CREATININE FOR GFR 1.17 MG/DL (0.70-1.30); GLOMERULAR FILTRATION RATE 73.6 (>56); MAGNESIUM LEVEL 2.1 MG/DL (1.8-2.4); POTASSIUM SERUM 4.4 MMOL/L (3.5-5.1); SODIUM LEVEL 143.0 MMOL/L (136-145)
[2024-12-08 07:26] VITALS: BP 113/83; TEMP 97.3; O2SAT 97
[2024-12-08 11:44] VITALS: BP 135/91; TEMP 98.4; O2SAT 95
[2024-12-08 12:57] LABS: CERULOPLASMIN 37.0 mg/dL (14-30)
[2024-12-08 15:42] LABS: ANTI-MITOCHONDRIAL ANTIBODY NEGATIVE (NEGATIVE)
[2024-12-08 16:10] VITALS: BP 138/84; TEMP 97.9; O2SAT 96
[2024-12-08 19:46] VITALS: BP 149/83; TEMP 97.6; O2SAT 97
[2024-12-09 00:41] VITALS: BP 120/79; TEMP 98.2; O2SAT 94
[2024-12-09 03:45] VITALS: BP 110/76; TEMP 97.1; O2SAT 93
[2024-12-09 05:12] LABS: BASO # 0.1 10^3/uL (0.0-0.2); BASO % 1.3 % (0.0-1.0); EOS # 0.3 10^3/uL (0.0-0.5); EOS % 3.4 % (0.0-3.0); LYMPH # 1.5 10^3/uL (1.5-5.0); LYMPH % 19.1 % (24.0-44.0); MONO # 1.1 10^3/uL (0.0-0.8); MONO % 14.7 % (2.0-8.0); NEUTROPHILS # 4.7 10^3/uL (1.5-8.5); NEUTROPHILS % 61.2 % (36.0-66.0); PLATELET COUNT, AUTOMATED 198 10^3/uL (150-450)
[2024-12-09 05:37] LABS: ALT/SGPT 21.0 U/L (7.0-40); AST/SGOT 28.0 U/L (<34); CALCIUM LEVEL 8.7 MG/DL (8.5-10.1); CARBON DIOXIDE LEVEL 31.0 MMOL/L (20-31); CHLORIDE LEVEL 100.0 MMOL/L (98-107); CREATININE FOR GFR 1.18 MG/DL (0.70-1.30); GLOMERULAR FILTRATION RATE 72.9 (>56); MAGNESIUM LEVEL 2.1 MG/DL (1.8-2.4); POTASSIUM SERUM 4.5 MMOL/L (3.5-5.1); SODIUM LEVEL 141.0 MMOL/L (136-145)
[2024-12-09 07:43] VITALS: BP 116/71; TEMP 97.2; O2SAT 94
[2024-12-09 09:58] VITALS: BP 126/57
[2024-12-09 10:04] VITALS: BP 126/57
[2024-12-09] MEDS ORDERED: ALDA25TA2 PO (11:56)
[2024-12-09] MEDS ORDERED: METO25TA4 PO (11:56)
[2024-12-09] MEDS ORDERED: FURO40TA2 PO (11:56)
[2024-12-09] MEDS ORDERED: OXYC-517 PO (11:59)
[2024-12-09 12:00] VITALS: BP 126/64; TEMP 97.6; O2SAT 94
[2024-12-10 15:17] LABS: ANTI-SMOOTH MUSCLE ANTIBODY < 20 U (<20)
== END 2024-12-09 14:27 | disposition home or self-care (01) | DRG 201 ==
LOC: M ED 13:33 → EDBD 13:33 → M ED INP 19:02 → M PCU 12-04 00:17
PROVIDERS: ADMIT Family Medicine; ATTEND Internal Medicine
DX: I48.91 Unspecified atrial fibrillation (principal); I50.23 Acute on chronic systolic (congestive) heart failure; I42.8 Other cardiomyopathies; Z68.42 Body mass index [BMI] 45.0-49.9, adult; E66.01 Morbid (severe) obesity due to excess calories; L97.918 Non-pressure chronic ulcer of unspecified part of right lower leg with other specified severity; K70.30 Alcoholic cirrhosis of liver without ascites; N18.30 Chronic kidney disease, stage 3 unspecified; K76.1 Chronic passive congestion of liver; L97.928 Non-pressure chronic ulcer of unspecified part of left lower leg with other specified severity; F17.220 Nicotine dependence, chewing tobacco, uncomplicated; R59.0 Localized enlarged lymph nodes; I89.0 Lymphedema, not elsewhere classified; R60.0 Localized edema; I87.2 Venous insufficiency (chronic) (peripheral); G47.33 Obstructive sleep apnea (adult) (pediatric); M17.0 Bilateral primary osteoarthritis of knee; Z79.01 Long term (current) use of anticoagulants; Z79.899 Other long term (current) drug therapy